=== PATIENT | female | born 1965 | race Caucasian/White ===

== ENCOUNTER 2020-03-30 09:22 | Outpatient (CLI) | payer OTHER, SELFPAY ==
--- NOTE | ~2020-03-30 | US_ITS ---
EXAMINATION: US right upper quadrant DATE: 03/30/2020 09:45 INDICATION: Right upper quadrant abdominal pain. TECHNIQUE: Multiple grayscale and Doppler ultrasound images of the abdomen were obtained. COMPARISON: CT abdomen and pelvis 11/25/2018 FINDINGS: The visualized portions of the head, body, and tail of the pancreas are normal. There is di ffuse hepatic steatosis. There is normal flow in main portal vein. The gallbladder is normal in size. No gallstones or gallbladder wall thickening. There was no sonographic Newton sign. The common duct is normal and measures 3 mm. IMPRESSION: 1. Diffuse hepatic steatosis. Reviewed, dictated and finalized at location B. ING CLEANER
== END 2020-03-30 09:23 | disposition home or self-care (01) ==
LOC: ANHIMG 09:26
PROVIDERS: PCP Internal Medicine; Visit Provider Nurse Practitioner
DX: R10.11 Right upper quadrant pain (principal); K76.0 Fatty (change of) liver, not elsewhere classified
CPT/HCPCS: 76705

== ENCOUNTER 2020-04-02 09:23 | Outpatient (CLI) | payer OTHER, SELFPAY ==
--- NOTE | ~2020-04-02 | NM_ITS ---
EXAMINATION: NM hepatobiliary w pharm DATE: 04/02/2020 11:32 INDICATION: Right upper quadrant abdominal pain. COMPARISON: CT abdomen and pelvis 11/25/2018, ultrasound 03/30/2020 TECHNIQUE: 5.1 mCi Tc-99m mebrofenin (Choletec) was administered intravenously. Scintigraphic images of the abdomen were obtained for one hour. Then, 1.5 mcg sincalide (Kinevac) IV was administered, an d imaging was continued for 30 minutes. FINDINGS: There is normal clearance of radiotracer from the blood pool. There is homogeneous tracer u ptake by the liver. Activity progresses to the bowel and gallbladder. Gallbladder ejection fraction (GBEF) was 88%. Note that most patients with gallbladder dysfunction have GBEF < 35%, which overlaps with the broad normal range of 10-90%. IMPRESSION: 1. Normal hepatobiliary scintigraphy. Reviewed, dictated and finalized at location B. CAL ASSISTANT DERMATOLOGY
== END 2020-04-02 09:24 | disposition home or self-care (01) ==
LOC: ANHIMG 09:24
PROVIDERS: PCP Internal Medicine; Visit Provider Internal Medicine
DX: R10.11 Right upper quadrant pain (principal)
CPT/HCPCS: 78227; A9537; J2805

== ENCOUNTER 2020-10-16 09:32 | Outpatient (CLI) | payer OTHER, SELFPAY ==
--- NOTE | ~2020-10-16 | MM_ITS ---
EXAMINATION: MM screening [facility] BI w [facility] HISTORY: Screening TECHNIQUE: Craniocaudal and mediolateral oblique 3-D tomosynthesis images were obtained and synthetic 2-D images were generated. CAD analysis was submitted and interpreted. COMPARISON: Comparison to multiple prior studies sequentially, with oldest reviewed study dated 09/30. BREAST PARENCHYMAL COMPOSITION: There are scattered areas of fibroglandular density. FINDINGS: There are asymmetries on CC views in the subareolar location of the right breast and outer aspect of the left breast, middle third. There are scattered benign calcifications. Stable axillary l ymph nodes. IMPRESSION: 1. New bilateral breast asymmetries on CC view. 2. Additional mammographic views and possible breast ultrasound are recommended. BI-RADS Category 0: Incomplete: Needs additional imaging evaluation. Reviewed, dictated and finalized at location A. IMPRESSION: 1. New bilateral breast asymmetries on CC view. 2. Additional mammographic views and possible breast ultrasound are recommended . BI-RADS Category 0: Incomplete: Needs additional imaging evaluation.
== END 2020-10-16 09:33 | disposition home or self-care (01) ==
LOC: ANHIMG 09:35
PROVIDERS: PCP Internal Medicine; Visit Provider Internal Medicine
DX: Z12.31 Encounter for screening mammogram for malignant neoplasm of breast (principal); R92.8 Other abnormal and inconclusive findings on diagnostic imaging of breast
CPT/HCPCS: 77063; 77067

== ENCOUNTER 2020-11-12 11:32 | Outpatient (CLI) | payer OTHER, SELFPAY ==
--- NOTE | ~2020-11-12 | MMUS_ITS ---
EXAMINATION: MM diagnostic mammo BI, US breast BI complete HISTORY: Follow-up bilateral breast masses TECHNIQUE: Additional 3-D tomosynthesis images of the breasts were performed and synthetic 2-D images were generated. CAD analysis was submitted and interpreted. High resolution bilateral complete breas t ultrasound was performed. COMPARISON: Comparison to multiple prior studies sequentially, with oldest reviewed study dated 07/14. BREAST PARENCHYMAL COMPOSITION: The breasts are heterogenously dense, which may obscure small masses. FINDINGS: MAMMOGRAPHIC FINDINGS: There is no mammographic evidence for malignancy in the left breast. There is a left breast subareola r mass which is stable. There is a focal 6 mm mass in the subareolar location of the right breast on CC view. ULTRASOUND: Right breast ultrasound: At 4:00 near the nipple there is a 4 mm cyst. At 9:00, 3 cm from the nipple there is a slightly irregular shaped hypoechoic mass with antiparallel configuration measuring 5 x 4 x 3 mm. No significant posterior features. Left breast ultrasound: Normal heterogeneous echotexture without focal solid or cystic mass. IMPRESSION: 1. Slightly irregular shaped 5 mm hypoechoic mass of the right breast at 9:00, 3 cm from the nipple w ith antiparallel configuration. 2. Ultrasound-guided right breast biopsy recommended. BI-RADS category 4, suspicious findings. Reviewed, dictated and finalized at location A. IMPRESSION: 1. Slightly irregular shaped 5 mm hypoechoic mass of the right breast at 9:00, 3 cm from the nipple with antiparallel configuration. 2. Ultrasound-guided right breast biopsy recommended. BI-RADS category 4, suspicious findings.
== END 2020-11-12 11:33 | disposition home or self-care (01) ==
LOC: ANHIMG 11:33
PROVIDERS: PCP Internal Medicine; Visit Provider Nurse Practitioner
DX: R92.8 Other abnormal and inconclusive findings on diagnostic imaging of breast (principal)
CPT/HCPCS: 76641; 77066

== ENCOUNTER 2020-11-12 13:50 | Outpatient (CLI) | payer OTHER, SELFPAY ==
--- NOTE | ~2020-11-12 | MR_ITS ---
EXAMINATION: MR cervical spine wo con EXAM DATE: 11/12/2020 14:28 INDICATION: Cervical radiculopathy. TECHNIQUE: Multi-sequential, multiplanar MR images of the cervical spine were obtained without contra st. Axial T2, axial T2 MERGE sequence. Sagittal T1, T2, T2 fat saturation images also obtained. Com parison is made to prior examination from 11/23/2016. FINDINGS: There is moderate loss of the C5-6 and 6-7 disc height. The vertebral bodies are aligned i n the AP dimension. There is small hemangioma within C7. Paraspinal soft tissue is unremarkable. The spinal cord signal intensity and intrinsic morphology is normal. Cervicomedullary junction is normal in appearance. Level by level evaluation: C2-C3: There is a minimal diffuse disc bulge. Uncovertebral joint arthropathy: Mild bilateral. Facet joint arthropathy: Mild bilateral. Neural foraminal stenosis: No stenosis. Central canal stenosis: No stenosis. C3-C4: There is a minimal diffuse disc bulge. Uncovertebral joint arthropathy: Mild to moderate right, mild left. Facet joint arthropathy: Mild bilateral. Neural foraminal stenosis: Mild right. Central canal stenosis: No stenosis. C4-C5: There is a mild diffuse disc bulge asymmetric to the right. Uncovertebral joint arthropathy: Mild to moderate right, mild left. Facet joint arthropathy: Mild bilateral. Neural foraminal stenosis: Mild right. Central canal stenosis: Mild. C5-C6: There is a mild diffuse disc bulge. Uncovertebral joint arthropathy: Moderate to severe right, moderate left. Facet joint arthropathy: Mild. Neural foraminal stenosis: Moderate right, mild to moderate left. Central canal stenosis: Mild. C6-C7: There is a mild diffuse disc bulge. Uncovertebral joint arthropathy: Moderate bilateral. Facet joint arthropathy: Mild bilateral. Neural foraminal stenosis: Moderate left, mild to moderate right. Central canal stenosis: Mild to moderate . Central canal measures 6 mm in mid sagittal AP diameter . C7-T1: Disc does not extend beyond the endplate margin. Uncovertebral joint arthropathy: Mild bilateral. Facet joint arthropathy: Mild bilateral. Neural foraminal stenosis: Mild bilateral. Central canal stenosis: No stenosis. There is been mild progression in lower cervical predominant spondylosis compared to 2017. IMPRESSION: 1. C5-6 and 6-7 moderate spondylosis. Reviewed, dictated and finalized at location G.
== END 2020-11-12 13:51 | disposition home or self-care (01) ==
PROVIDERS: PCP Internal Medicine
DX: M54.12 Radiculopathy, cervical region (principal); M47.812 Spondylosis without myelopathy or radiculopathy, cervical region
CPT/HCPCS: 72141

== ENCOUNTER 2021-01-13 12:39 | Outpatient (RCR) | payer OTHER, SELFPAY ==
[2021-01-13 12:49] VITALS: BMI 27.1
[2021-01-13 12:53] VITALS: BMI 27.1
== END 2021-04-04 10:25 | disposition home or self-care (01) ==
LOC: ANHDMC 12:39
PROVIDERS: PCP Internal Medicine; Visit Provider Nurse Practitioner
DX: E78.5 Hyperlipidemia, unspecified (principal); Z71.3 Dietary counseling and surveillance
CPT/HCPCS: 97802

== ENCOUNTER 2022-03-08 16:23 | Outpatient (CLI) | payer OTHER, SELFPAY ==
--- NOTE | ~2022-03-08 | XR_ITS ---
XR chest 2V DATE: 03/08/2022 16:48 INDICATION: Shortness of breath TECHNIQUE: PA and lateral views COMPARISON: None FINDINGS: Normal heart size. No hilar or mediastinal enlargement. No pulmonary infiltrate or consolid ation, pleural effusion or pulmonary vascular congestion or pneumothorax. Degenerative spurring of the thoracic spine. IMPRESSION: No active cardiopulmonary disease Reviewed, dictated and finalized at location A. CITING FREIGHT AGENT
== END 2022-03-08 16:24 | disposition home or self-care (01) ==
PROVIDERS: PCP Internal Medicine; Visit Provider Nurse Practitioner
DX: R06.02 Shortness of breath (principal)
CPT/HCPCS: 71046

== ENCOUNTER → 2023-02-23 09:14 | Outpatient (CLI) | payer OTHER, SELFPAY ==
--- NOTE | ~2023-02-23 | DEXA_ITS ---
Bone Density Report Name: KONRAD PAGE Age: 58 Sex: Female Ethnicity: White Date of : 1965 Indication: postmenopausal; screening for osteoporosis; hysterectomy; Referring Provider: Aurelia Miller Study: Bone densitometry was performed. Exam Date: February 23, 2023 Accession number: [id number] Bone Density: Region BMD T-score Z-score Classification AP Spine (L1-L4) 0.869 -1.6 -0.3 Osteopenia Femoral Neck (Left) 0.720 -1.2 0.1 Osteopenia Total Hip (Left) 0.903 -0.3 0.6 Normal Femoral Neck (Right) 0.704 -1.3 -0.1 Osteopenia Total Hip (Right) 0.911 -0.3 0.6 Normal Total Hip Mean 0.907 -0.3 0.6 Normal World Health Organization criteria for BMD impression classify patients as: Normal (T-score at or above -1.0), Osteopenia (T-score between -1.0 and -2.5), or Osteoporosis (T-score at or below -2.5). 10-year Fracture Risk(1): Major Osteoporotic Fracture 7.4% Hip Fracture 0.5% Reported Risk Factors: [place] (), Neck BMD=0.704, BMI=25.6 (1) FRAX(R) Version 3.08. Fracture probability calculated for an untreated patient. Fracture probability may be lower if the patient has received treatment. Clinical Information Provided by Patient: Has the following medical conditions: Hysterectomy Patient maximum height was 63.4 Menopause Age: 35 Onset of menses at age 12 Number of children 1 Missed period for more than 6 months in a row Impression: The patient has low bone mass, based on the Total Spine T-score. The patient has an estimated ten-year risk of hip fracture of 0.5% and an estimated ten-year risk of major fracture of 7.4%, based on the WHO FRAX algorithm. Discussion: BONE DENSITY IS LOW AT ONE OR MORE SKELETAL SITES. This patient's lowest T-score is low at one or more skeletal sites. It meets the World Health Organization's (WHO) criteria for ?low bone mass? (T-score between -1.0 and -2.5). The patient's 10-year risk of fracture as calculated by FRAX is less than the threshold where pharmacological therapy is recommended by the National Osteoporosis Foundation (NOF). However, all treatment decisions require clinical judgment and consideration of individual patient factors, including patient preferences, comorbidities, previous drug use, risk factors not captured in the FRAX model (e.g., frailty, falls, vitamin D deficiency, increased bone turnover, interval significant decline in bone density) and possible under or overestimation of fracture risk by FRAX. The patient should follow a healthful lifestyle (good nutrition with adequate calcium and vitamin D, and appropriate weight-bearing exercise). Follow-Up: Consider repeating this study in 2 to 3 years to reassess this patient's status, or sooner if there is some new clinical indication. Reported by: [facility] on 02/23/2023 9:25:00 AM.
== END ==
PROVIDERS: PCP Obstetrics & Gynecology; Visit Provider Obstetrics & Gynecology
DX: Z78.0 Asymptomatic menopausal state (principal); M85.89 Other specified disorders of bone density and structure, multiple sites
CPT/HCPCS: 77080

== ENCOUNTER 2024-01-31 15:29 | Outpatient (CLI) | payer OTHER, SELFPAY ==
--- NOTE | ~2024-01-31 | MM_ITS ---
EXAMINATION: MM screening [facility] BI w [facility] HISTORY: Screening TECHNIQUE: Craniocaudal and mediolateral oblique 3-D tomosynthesis images were obtained and synthetic 2-D images were generated. CAD analysis was submitted and interpreted. COMPARISON: 08/11/2022 and dating back to 04/22/2009 BREAST PARENCHYMAL COMPOSITION: The breasts are heterogeneously dense, which may obscure small masses . FINDINGS: Punctate calcifications are detected bilaterally, stable and benign in appearance. Stable parenchymal pattern without suspicious microcalcifications, architectural distortion, discrete masses or significant asymmetry. IMPRESSION: 1. No mammographic evidence of malignancy. 2. Recommend routine screening mammography in one year. BI-RADS Category 2: Benign finding(s). Reviewed, dictated and finalized at location A.
== END 2024-01-31 15:30 | disposition home or self-care (01) ==
PROVIDERS: PCP Internal Medicine; Visit Provider Internal Medicine
DX: Z12.31 Encounter for screening mammogram for malignant neoplasm of breast (principal)
CPT/HCPCS: 77063; 77067

== ENCOUNTER 2024-05-13 07:20 | Emergency (ER) | payer OTHER, SELFPAY ==
--- NOTE | ~2024-05-13 | CT_ITS ---
EXAMINATION: CT abdomen pelvis w con DATE: 05/13/2024 09:01 INDICATION: Flank pain. Left lower quadrant abdominal pain. TECHNIQUE: Computed tomography (CT) of the abdomen and pelvis was performed with 100 mL Omnipaque 350 intravenous contrast. Automated exposure control and iterative reconstruction technique were employe d. The dose-length product was 423.94 mGy-cm. COMPARISON: CT abdomen and pelvis 11/25/2018 FINDINGS: The visualized portions of the lung bases demonstrate mild atelectasis. No pleural effusion . The heart size is normal. No pericardial effusion. There is diffuse hepatic steatosis. The gallblad smita, spleen, pancreas, and adrenal glands are normal. There is a 5 mm cyst in right kidney. There is a delayed left-sided contrast nephrogram. There is a 2 mm stone in left kidney. There is mild left hy dronephrosis and hydroureter. There is a 3 mm stone at left ureterovesicular junction. There is diver ticulosis of the colon without evidence of diverticulitis. There are no dilated loops of bowel. The a ppendix is not visualized. There are no pathologically enlarged lymph nodes. There is no free intrape ritoneal fluid. There is mild thoracic and lumbar spondylosis. IMPRESSION: 1. 3 mm stone at left ureterovesicular junction with mild left hydronephrosis and hydroureter. 2. 2 mm nonobstructing left kidney stone. Reviewed, dictated and finalized at location B. RVISOR OF GUIDANCE AND TESTING IMPRESSION: 1. 3 mm stone at left ureterovesicular junction with mild left hydronephrosis a nd hydroureter. 2. 2 mm nonobstructing left kidney stone.
[2024-05-13 07:26] VITALS: BP 160/86; PULSE 79; RESP 20; TEMP 36.9; O2SAT 100
[2024-05-13] MEDS: ONDANSETRON INJ 4 MG/2 ML VIAL IV PUSH ×2 (07:31→10:19)
[2024-05-13] MEDS: HYDROmorphone HCL INJ (*CRX) 1 MG/ML SYR IV PUSH (07:32)
[2024-05-13 07:37] LABS: Basophils Absolute Auto 0.1 K/mm3 (0.0-0.1); Basophils Percent Auto 0.9 % (0.2-1.2); Eosinophils Absolute Auto 0.1 K/mm3 (0-0.3); Eosinophils Percent Auto 1.6 % (0-4.4); Hematocrit 42.3 % (37.0-47.0); Hemoglobin 14.6 g/dL (12.0-15.0); Immature Granulocyte Absolute 0.04 K/mm3 (0.00-0.031); Immature Granulocyte Percent A 0.5 % (0-0.5); Lymphocytes Absolute Auto 2.81 K/mm3 (0.9-3.2); Mean Corpuscular HGB Conc 34.5 g/dl (32-36); Mean Corpuscular Hemoglobin 31.2 pg (26-34); Mean Corpuscular Volume 90.4 fl (80-100); Mean Platelet Volume 10.2 fl (7.4-10.4); Monocytes Absolute Auto 0.8 K/mm3 (0.1-0.6); Monocytes Percent Auto 9.5 % (2.6-8.5); Neutrophils Absolute Auto 4.9 K/mm3 (1.3-6.7); Neutrophils Percent Auto 55.5 % (45.5-73.1); Platelet Count Result 233 k/mm3 (150-375); Red Blood Count 4.68 M/mm3 (4.2-5.4); Red Cell Distribution Width 12.5 % (11.5-14.5); White Blood Count 8.8 K/mm3 (4.5-10.0)
--- NOTE | 2024-05-13 07:40 | ED_ITS ---
HPI - General Adult General Chief complaint: Urogenital-Female Stated complaint: I think I have a kidney stone Time Seen by Provider: 05/13/24 07:23 History of Present Illness HPI narrative: 59-year-old female presenting to the emergency department for evaluation for acute onset of left flank left lower quadrant pain. Patient states she was feeling fine yesterday, she did develop some diarrhea during the night but had acute onset the pain and approximately 6:00 a.m. this morning with associated nausea and vomiting. Patient does report a prior history of kidney stones approximately 15 years ago which he did pass on her own. Patient is currently on Ozempic Related Data Allergies Allergy/AdvReac Type Severity Reaction Status Date / Time Penicillins Allergy Unknown Unknown Verified 05/13/24 07:21 Sulfa (Sulfonamide Allergy Unknown Unknown Verified 05/13/24 07:21 Antibiotics) Review of Systems 2 Review of Systems: All systems reviewed & are unremarkable except as noted in HPI and below PMFSH Past Medical History Medical History (Updated 05/13/24 @ 10:22 by Dylon Shaffer MD) COVID SOB (shortness of breath) Hepatic steatosis Abnormal mammogram Overweight (BMI 25.0-29.9) Sleep apnea Major depression B12 deficiency Vitamin D deficiency Surgical History Surgical History Delivery by section History of hysterectomy Family History Family History Sibling Patient's brother is in good health Breast cancer Father Cerebrovascular accident Myocardial infarction Prediabetes Mother Myocardial infarction Social History Social History Smoking status: Former smoker Smoking end date: 04/23/05 Alcohol intake: current Drinks per week: 3 Lack of Transportation: No Lack of Food: Never True Current Housing: I Have Housing Concerned About Future Housing: No Difficulty Paying Gas/Electric Bills: No Difficulty Paying for Meds: No Currently Unemployed: No Education: Master's Degree or Higher Difficulty w/ Childcare or Family Care: No Spiritual care concerns: No Exam 2 Narrative: APPEARANCE: Uncomfortable appearing HEAD: normocephalic, atraumatic. EYES: PERRLA/EOMI, conjunctivae clear. NOSE: Normal no drainage EARS:TMS clear with good light reflex. THROAT: Pharynx clear, no exudate. NECK: Supple. No adenopathy, no masses. RESPIRATORY: Airway patent, respirations nonlabored. Clear to auscultation bilaterally, no rales, rhonchi, wheezing. CARDIOVASCULAR: Regular rate and rhythm without murmurs rubs or gallops. ABDOMINAL: Left flank and left lower quadrant tenderness to palpation MUSCULOSKELETAL: Moves all extremities. Strength/ROM intact, No edema, No calf tenderness. NEURO: Alert. Cranial nerves II through XII intact. Good gait. Good coordination SKIN: Warm, dry. Normal Color Course Vital Signs Vital signs: Vital Signs Temperature 98.4 F 05/13/24 07:26 Pulse Rate 79 05/13/24 07:26 Respiratory Rate 20 05/13/24 07:26 Blood Pressure 160/86 H 05/13/24 07:26 Pulse Oximetry 100 05/13/24 07:26 Oxygen Delivery Room Air 05/13/24 07:26 Temperature 98.4 F 05/13/24 07:26 Pulse Rate 91 05/13/24 10:41 Respiratory Rate 18 05/13/24 10:41 Blood Pressure 157/89 H 05/13/24 10:41 Pulse Oximetry 99 05/13/24 10:41 Oxygen Delivery Room Air 05/13/24 07:26 Medical Decision Making MDM Narrative Medical decision making narrative: 59-year-old female presented to the emergency department for evaluation for left-sided flank pain. Patient is suspected she was having a kidney stone due to her prior history of ureteral calculi. Patient is afebrile with no leukocytosis and hemoglobin of 14.6. Patient has normal kidney function, patient had no evidence infection or hematuria on her urinary analysis. CT scan did show a 3 mm left-sided ureteral calculi. On re-evaluation patient does feel improved. Patient was updated results of her workup. Patient was comfortable with the plan to attend pain management as outpatient. Patient will be provided Flomax, Zofran and [place]. Patient was advised strain your urine having close follow-up with Urology. Differential Diagnosis Differential Diagnosis: Ureteral calculi, urinary tract infection, colitis, diverticulitis, gastroenteritis Vital Signs Vital Signs: Vital Signs Temperature 98.4 F 05/13/24 07:26 Pulse Rate 79 05/13/24 07:26 Respiratory Rate 20 05/13/24 07:26 Blood Pressure 160/86 H 05/13/24 07:26 Pulse Oximetry 100 05/13/24 07:26 Oxygen Delivery Room Air 05/13/24 07:26 Temperature 98.4 F 05/13/24 07:26 Pulse Rate 91 05/13/24 10:41 Respiratory Rate 18 05/13/24 10:41 Blood Pressure 157/89 H 05/13/24 10:41 Pulse Oximetry 99 05/13/24 10:41 Oxygen Delivery Room Air 05/13/24 07:26 Lab Data Lab results reviewed: Yes I reviewed the patient's lab results. 05/13/24 07:33 05/13/24 07:33 Labs: Lab Results 05/13/24 05/13/24 Range/Units 07:33 07:48 WBC 8.8 (4.5-10.0) K/mm3 RBC 4.68 (4.2-5.4) M/mm3 Hgb 14.6 (12.0-15.0) g/dL Hct 42.3 (37.0-47.0) % MCV 90.4 (80-100) fl MCH 31.2 (26-34) pg MCHC 34.5 (32-36) g/dl RDW 12.5 (11.5-14.5) % Plt Count 233 (150-375) k/mm3 MPV 10.2 (7.4-10.4) fl Immature Gran % (Auto) 0.5 (0-0.5) % Neut % (Auto) 55.5 (45.5-73.1) % Lymph % (Auto) 32.0 (18.3-44.2) % [place] % (Auto) 9.5 H (2.6-8.5) % Eos % (Auto) 1.6 (0-4.4) % Baso % (Auto) 0.9 (0.2-1.2) % Lymph # (Auto) 2.81 (0.9-3.2) K/mm3 [place] # (Auto) 0.8 H (0.1-0.6) K/mm3 Eos # (Auto) 0.1 (0-0.3) K/mm3 Baso # (Auto) 0.1 (0.0-0.1) K/mm3 Abs Immat Gran (auto) 0.04 H (0.00-0.031) K/mm3 Absolute Neuts (auto) 4.9 (1.3-6.7) K/mm3 Absolute Nucleated RBC 0.000 (0.0-0.012) K/mm3 Nucleated RBC % 0.0 (0.0-0.2) % Sodium 140 (137-145) mmol/L Potassium 4.6 (3.4-5.0) mmol/L Chloride 106 (98-107) mmol/L Carbon Dioxide 21 L (22-30) mmol/L Anion Gap 13 H (4-12) mmol/L BUN 17 (7-17) mg/dL Creatinine 0.60 L (0.7-1.0) mg/dL Estim Creat Clear Calc 79 ml/min Estimated GFR > 60 (59 - ) Glucose 150 H (65-110) mg/dL Calcium 9.4 (8.4-10.2) mg/dL Total Bilirubin 0.6 (0.2-1.3) mg/dL AST 33 (14-36) U/L ALT 34 (6-35) U/L Alkaline Phosphatase 82 (38-126) U/L Total Protein 7.0 (6.3-8.2) g/dL Albumin 4.5 (3.5-5.1) g/dL Urine Color Yellow (Yellow) Urine Appearance Clear (Clear) Urine pH 8.5 (5.0-9.0) Ur Specific [place] 1.019 (1.001-1.035) Urine Protein Negative (Negative) mg/dL Urine Glucose (UA) Negative (Negative) mg/dL Urine Ketones Negative (Negative) mg/dL Ur Blood (Man) Negative (Negative) Urine Nitrate Negative (Negative) Urine Bilirubin Negative (Negative) Urine Urobilinogen 0.2 (<2.0) mg/dL Leukocyte Esterase Rfl Negative (Negative) MAEGAN/UL Imaging Data Radiologist's impression: Impressions Abdomen/Pelvis CT 05/13/24 09:02 IMPRESSION: 1. 3 mm stone at left ureterovesicular junction with mild left hydronephrosis and hydroureter. 2. 2 mm nonobstructing left kidney stone. Discharge Plan Discharge Clinical Impression: Calculi, ureter Patient Disposition: Home, Self-Care Condition: Stable Instructions: Antibiotic Form, Kidney Stones (ED), How to Strain Your Urine (ED), Flank Pain (ED), Ureteral Stones (ED) Additional Instructions: Ibuprofen for pain control. [place] as needed for additional pain control. Flomax to help you pass the stone. Zofran as needed for nausea control. Strain your urine as instructed. Have close follow-up with Urology. If you have any worsening symptoms including uncontrolled pain, uncontrolled nausea and vomiting or high fever please call or return to the emergency department. Patient Language: Amharic Prescriptions: New hydrocodone-acetaminophen 5-325 mg tablet 1 tablet PO Q12H PRN (Reason: pain) Qty: 14 0RF tamsulosin [Flomax] 0.4 mg capsule 0.4 mg PO DAILY 14 Days Qty: 14 0RF ondansetron 4 mg tablet,disintegrating 4 mg PO Q8H PRN (Reason: nausea and vomiting) Qty: 14 0RF No Action diazepam 2 mg tablet 2 mg PO QHS PRN (Reason: anxiety) Qty: 20 0RF cholecalciferol (vitamin D3) 50 mcg (2,000 unit) capsule 50 mcg PO DAILY Qty: 1 0RF dicyclomine 10 mg capsule 10 mg PO TID PRN (Reason: abdominal pain) Qty: 270 0RF Rx Instructions: DUE FOR APPOINTMENT IN NOVEMBER cyanocobalamin (vitamin B-12) 1,000 mcg/mL kit 1,000 mcg subcut WEEKLY Qty: 4 6RF fluticasone propionate [Flonase Allergy Relief] 50 mcg/actuation spray,suspension 1 spray intranasal Q12H Qty: 16 5RF Rx Instructions: administer into each nostril Follow-up/Referrals: Jason Winkler MD [Physician] - Yon Palomino DO [Primary Care Provider] - Stand Alone Forms: Work/School Release IP
[2024-05-13 07:49] LABS: Alanine Aminotransferase 34 U/L (6-35); Albumin Level 4.5 g/dL (3.5-5.1); Alkaline Phosphatase 82 U/L (38-126); Anion Gap 13 mmol/L (4-12); Aspartate Amino Transferase 33 U/L (14-36); Bilirubin,Total 0.6 mg/dL (0.2-1.3); Blood Urea Nitrogen 17 mg/dL (7-17); Calcium 9.4 mg/dL (8.4-10.2); Carbon Dioxide 21 mmol/L (22-30); Chloride 106 mmol/L (98-107); Estimated CRCL calculation 79 ml/min; Estimated Glomerular Filt Rate > 60; Glucose 150 mg/dL (65-110); Potassium 4.6 mmol/L (3.4-5.0); Sodium 140 mmol/L (137-145)
[2024-05-13 08:18] LABS: Add Urine Microscopic? NO; Appearance Urine Clear (Clear); Bilirubin Urine Negative (Negative); Blood Urine Negative (Negative); Color Urine Yellow (Yellow); Glucose Urine UA Negative (Negative); Ketones Urine Negative (Negative); Leukocyte Esterase Ur Negative LEU/UL (Negative); Nitrate Urine Negative (Negative); Protein Urine Negative (Negative); Specific Grav Ur 1.019 (1.001-1.035); Urobilinogen Urine 0.2 mg/dL (<2.0); pH Urine 8.5 (5.0-9.0)
[2024-05-13 08:36] VITALS: BP 157/87; PULSE 79; RESP 18; O2SAT 99
[2024-05-13] MEDS: KETOROLAC 30 MG/ML VIAL (*BKC) IV PUSH (09:58)
[2024-05-13] MEDS: HYDROcodone/acetaminophen (*CRX) 5-325 MG TABLET 1 TAB PO (09:59)
[2024-05-13] MEDS: TAMSULOSIN HCL 0.4 MG CAPSULE PO (09:59)
[2024-05-13 10:00] VITALS: BP 157/89; PULSE 74; RESP 16; O2SAT 100
[2024-05-13 10:41] VITALS: BP 157/89; PULSE 91; RESP 18; O2SAT 99
--- OUTSIDE RECORDS SUMMARY | 2024-05-15 15:33 | XMS_ITS | Referral Summary ---
Author Organization [facility] Medical Office Building [address] Address [address] [place] [address] Care Team Providers Care Tool Dresser Name Role Phone Yon Palomino DO Primary Care Provider [phone] Allergies Active Allergy Reactions Criticality Noted Date Comments Penicillins Rash Medium 11/28/2018 Sulfa (Sulfonamide Antibiotics) Shortness of breath High 12/02/[address] (CYMBALTA) 60 mg capsule Take 60 mg by mouth daily Active ALPRAZolam (XANAX) 0.25 mg tablet alprazolam 0.25 mg tablet Active dicyclomine (BENTYL) 10 mg capsule TAKE 1 CAPSULE BY MOUTH THREE TIMES A DAY NEEDED FOR ABDOMINAL PAIN. 10/23/19 21 Active estradioL (VAGIFEM) 10 mcg tablet Imvexxy Maintenance Pack 10 mcg vaginal insert 08/05/19 20 Active metroNIDAZOLE (FLAGYL) 500 mg tablet metronidazole 500 mg tablet Active nystatin-triamc inolone ointment nystatin-triamcino lone 100,000 unit/gram-0.1 % topical ointment Active cyanocobalamin (Vitamin B-12) 1,000 mcg/mL injection INJECT 1 ML SUBCUTANEOUSLY ONCE WEEKLY 11/06/19 24 Active fluticasone propionate (FLONASE) 50 mcg/actuation nasal spray SPRAY ONE SPRAY INTO EACH NOSTRIL EVERY 12 HOURS 11/08/19 24 Active Ozempic 1 mg/dose (4 mg/3 mL) pen injector injection INJECT 1MG SUBCUTANEOUSLY ONCE WEEKLY Active triamcinolone (KENALOG) 0.1 % ointmentIndicat ions:Contact dermatitis due to plants, except food, unspecified contact dermatitis type Apply topically 2 (two) times a day for 10 days Right arm 30 g 12/02/19 24 Active Active Problems Problem Noted Date Diagnosed Date Anxiety 08/11/2022 History of hysterectomy 08/11/2022 Osteopenia 08/11/2022 Premature menopause 08/11/2022 Type 2 diabetes mellitus 08/11/2022 Mammogram abnormal 12/06/2020 Right lower quadrant pain 12/11/2018 Assessment & Plan (02/04/2019 3:26 PM CDT): I reviewed all notes.labs,images and procedures. She had colonoscopy and BE at [facility] several months ago. Currently ibs with migratory abd pains and erratic bms. Also very concerned aboput etoh consumption. I discussed with her the CT,blood work and PE findings without evidence liver dmage and discussed reduction in etoh use. For the ibs discussed hi fiber diet. PE wnl and return prn. Assessment & Plan (12/11/2018 1:54 PM CDT): Patient has had some improvement, minimally, since Sunday. Denies fevers, chills. Negative for rebound tenderness, rovsing, obturator, etc appendix exams. Patient last cbc normal. Patient with history of endometriosis. No outward sign of endometrial deposit. Request patient for cd of [facility] from [facility]. If fever, nausea, vomiting occur please call or go to ER. 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 Social History Tobacco Use Types Packs/Day Years Used Date Smoking Tobacco: Former Cigarettes Smokeless Tobacco: Never Tobacco Cessation:Counseling Given: Not Answered Alcohol Use Standard Drinks/Week Comments Yes 0 (1 standard drink = 0.6 oz pure alcohol) thinks she might be an alcholoic AUDIT-C Answer Date Recorded Frequency of Alcohol Consumption 2-3 times a wee k 11/28/2018 Average Number of Drinks 3 or 4 019 Frequency of Binge Drinking Never 11/2018 PHQ-2 Answer Date Recorded PHQ-2 Score 0 02/04/2019 Personal Safety Answer Date Recorded Getting School Help Needed Not on file 03/16 /2024 Comments Unknown Sex and Gender Information Value Date Recorded Sex Assigned at Not on file Legal Sex Female 6:56 AM [employer] TRA[employer] Gender Identity Female 11/29/2020 8:21 AM CDT Sexual Orientation Straight 11/29/2020 8: 21 AM CDT Last Filed Vital Signs Vital Sign Reading Time Taken Comments Blood Pressure 133/87 12/02/2023 4:07 PM CDT Pulse 78 12/02/2023 4:07 PM CDT Temperature 36.6 ??C (97.8 ??F) 12/02/2023 4:07 PM CD T Respiratory Rate 16 12/02/2023 4:07 PM CDT Oxygen Saturation 97% 12/02/2023 4:07 PM CDT Inhaled Oxygen Concentration - - Weight 70.3 kg (155 lb) 12/02/2023 4:07 PM CDT Height 162.6 cm (5' 4 ) 12/02/2023 4:07 PM CDT Body Mass Index 26.61 12/02/2023 4:07 PM CDT Plan of Treatment Not on file Procedures Procedure Name Priority Date/Time Associated Diagnosis Comments SCREENING MAMMOGRAM BILATERAL W ALLAN Schedule Routine, Read Routine (OP Routine) 08/11/2022 3:19 PM CDT Screening mammogram, encounter for EGFR Routine 12/03/2018 3:27 PM CDT Right lower quadrant abdominal pain from Last 3 Months or Most Recently Relevant to Health Maintenance Results * Screening Mammogram Bilateral W Allan (08/11/2022 3:19 PM CDT) Anatomical Region Laterality Modality Breast Bilateral Mammography Narrative 08/15/2022 3:32 PM CDT Mammogram Technique: Bilateral Digital Breast Tomosynthesis, Bilateral C-view 2D Screening mammogram. ??Views obtained: ??bilateral craniocaudal and bilateral mediolateral oblique. ??Computer Aided Detection was performed. Mammogram Findings: The present examination has been compared to prior imaging studies performed at [facility] on 10/09/2006, and at [facility] on 09/13/2006. There are scattered areas of fibroglandular density. There is no suspicious abnormality in either breast. There are no significant changes from the prior study. Impression: Finding is benign. Annual screening mammography is recommended. OVERALL FINAL ASSESSMENT: BI-RADS CATEGORY 2: ??Benign. Procedure Note Dayana Gallardo MD - 08/15/2022 Mammogram Technique: Bilateral Digital Breast Tomosynthesis, Bilateral C-view 2D Screening mammogram. Views obtained: bilateral craniocaudal and bilateral mediolateral oblique. Computer Aided Detection was performed. Mammogram Findings: The present examination has been compared to prior imaging studies performed at [facility] on 10/09/2006, and at [facility] on 09/13/2006. There are scattered areas of fibroglandular density. There is no suspicious abnormality in either breast. There are no significant changes from the prior study. Impression: Finding is benign. Annual screening mammography is recommended. OVERALL FINAL ASSESSMENT: BI-RADS CATEGORY 2: Benign. us Self Screening Mammogram IMG MAMMO PROCEDURES Fi nal Result * eGFR (12/03/2018 3:27 PM CDT) eGFR 100 mL/min/1.7 3 m2 JT SIMONS (ESSENCE) Comment: Interpretive Data Reference Interval Normal ?>/= 90 mL/min/1.73m2 Mildly decreased* ? 60 - 89 mL/min/1.73m2 Mildly to moderately decreased ?45 - 59 mL/min/1.73m2 Moderately to severely decreased ??30 - 44 mL/min/1.73m2 Severely decreased ?15 - 29 mL/min/1.73m2 Kidney Failure ?< 15 ??mL/min/1.73m2 *Relative to young adult level If -Wallisian multiply value by 1.16. Estimated glomerular filtration rate is determined by the CKD-EPI equation recommended by the National Kidney Foundation (KDIGO 2012 Clinical Practice Guideline for the Evaluation and Management of Chronic Kidney Disease. Kidney Intnl Suppl Apr 2012;3:1). The CKD-EPI equation should not be used for patients with unstable renal function and has not been validated in children and those over 70. Current interpretive data was last reviewed 2015. Blood specimen (specimen) 12/03/2018 3:27 PM CDT 12/03/2018 4:15 PM CDT us Yolette Loja [employer] LAB BLOOD ORDERABLES Final Resul t [facility] ([facility]) [address] [facility] [place] [address] from Last 3 Months or Most Recently Relevant to Health Maintenance Insurance [employer] [facility] [place] [id number] [facility] [id number] [facility] [id number] Care Teams Tool Dresser Relationship Specialty Start Date End Date Yon Palomino DO PCP - General Internal Medicine 11/26/18
--- OUTSIDE RECORDS SUMMARY | 2024-05-15 15:33 | XMS_ITS | Encounter Summary ---
Author Organization [facility] Address [address] [place] [address] Care Team Providers Care Life Educator Name Role Phone Yon Palomino DO Primary Care Provider [phone]- [phone] Encounter Details Date Type Department Care Team (Late st Contact Info) Description 09/05/2018 Telephone [facility] [address] [place] [id number] [phone] Eliza Gross, SPEECH AND DRAMA TEACHER-[facility] [address] [address] Social History Tobacco Use Types Packs/Day Years Used Date Smoking Tobacco: Never Smokeless Tobacco: Never Alcohol Use Standard Drinks/Week Comments No 0 (1 standard drink = 0.6 oz pur e alcohol) Sex and Gender Information Value Date Recorded Sex Assigned at Not on file Gender Identity Not on file Sexual Orientation Not on file documented as of this encounter Plan of Treatment Not on file documented as of this encounter Visit Diagnoses Not on filedocumented in this encounter Care Teams Life Educator Relationship Specialty Start Date End Date Yon Palomino DO PCP - General 10/30/17 documented as of this encounter
--- OUTSIDE RECORDS SUMMARY | 2024-05-15 15:33 | XMS_ITS | Data Portability ---
Author Organization [facility] Address [address] [place] [address] Care Team Providers Care Copier Technician Name Role Phone JO ANN ASCENCIO Primary Care Provider Assessment Encounter Date Assessment Date Assessment LastModified by Organization Details LastModified Time 08/11/2022 08/11/2022 healthy female exam/menopaus e patient declines std testing pap- none further mammogram today colonoscopy due 2030 dexa ordered and encouraged Encouraged weight bearing exercise and 1500mg daily of Calcium with Vitamin D FU 1 year or prn Not available 08/11/2022 11:41:15 Plan of Treatment Reminders Order Date Submit Date Provider Last Modified By Organization Details Last Modified Time Details Appointments None recorded. Lab None recorded. Referral None recorded. Procedures None recorded. Surgeries None recorded. Imaging None recorded. Medication Orders nystatin-t riamcinolo ne 100,000 unit/gram- 0.1 % topical ointment 2022 023 [email or web address] [id number], [address] [place], [address], 3 10:02:38 Estrace 0.01% (0.1 mg/gram) vaginal cream 2022 023 [place] [id number], [address] [place], [address], 3 10:03:21 Estrace 0.01% (0.1 mg/gram) vaginal cream 2022 023 [place] [id number], [address] [place], [address], 10:34:20 Patient TargetsNo targets recorded. Patient InstructionsNo instructions recorded. Reason for Referral None Reported. Results Created Date Observation Date Name Description Value Unit Range Abnormal Flag Note LastModifiedBy Organization Detail LastModifiedTime 08/25/19 23 08/24/2022 CT/GC AND TRICH OMONA S VAGIN MAMIE (RRNA ), SWAB chlamydia trachomatis, PCR Negati ve negati ve Not Available [facility] (Lab) [address] [facility], [place], [address], 08/27/2022 10:36:36 08/25/19 23 08/24/2022 CT/GC AND TRICH OMONA S VAGIN MAMIE (RRNA ), SWAB neisseria gonorrhoeae, PCR Negati ve negati ve Not Available [facility] (Lab) [address] [facility], [place], [address], 08/27/2022 10:36:36 08/25/19 23 08/24/2022 CT/GC AND TRICH OMONA S VAGIN MAMIE (RRNA ), SWAB trichomonas vaginalis ribosomal RNA (rrna) Negati ve negati ve Not Available [facility] (Lab) [address] [facility], [place], [address], 08/27/2022 10:36:36 08/25/19 23 08/24/2022 CULTU RE: HERPE S SIMPL EX VIRUS (HSV) , REFLE X TYPIN G source LESION SCRAPI NGS Not Available [facility] (Lab) [address] [facility], [place], [address], 08/27/2022 10:36:37 08/25/19 23 08/24/2022 CULTU RE: HERPE S SIMPL EX VIRUS (HSV) , REFLE X TYPIN G hsv culture, body fluid NOT ISOLAT ED right labia minor a Perfo rming Organ izati on Infor matio n: Site ID: CB Name: [facility] Addre ss: [address] [place] [address] Direc tor: Delfin kwan Not Available [facility] (Lab) [address], [place], [address], 08/27/2022 10:36:37 02/24/20 23 02/23/2023 DEXA No observ ation record ed. [facility] [address], [place], [address], 06/10/2023 19:49:57 Result Notes None recorded. Problems Name Problem SNOMED Code Status Onset Date Resolution Date Notes Provider Name and Address Organization Details Recorded Time Premature menopause 424763425 Active 2022 age 35- surgic al, HRT only 1-2 years Aurelia Miller MD [address], [place], [address], [facility] 3 11:23:31 Osteopenia 604859870 Active 2022 Aurelia Miller MD [address], [place], [address], [facility] 3 11:23:39 Type 2 diabetes mellitus 15711260 Active 2022 Aurelia Miller MD [address], [place], [address], [facility] 3 11:23:45 Anxiety 00208246 Active 2022 Aurelia Miller MD [address], [place], [address], [facility] 3 11:24:11 History of hysterectomy 151963606 Active 2022 LAVH/B SO endo/o v cysts Aurelia Miller MD [address], [place], [address], [facility] 3 11:24:36 Problem Notes None recorded. Procedures Surgical History Date Name Laterality Status Provider Name and Address Organization Details Recorded Time 06/07/19 22 Date of Last Mammogram completed Lazara Brantley [facility] 08/11/2022 10:56:15 04/23/19 21 Breast Biopsy completed Peyton Rudolph [facility] 11/16/2022 15:08:22 03/24/20 20 Date of Last [facility] 08/24[facility]2022 12:46:53 03/24/20 20 completed Grace Meyer [facility] 08/24/2022 12:46:53 03/24/20 20 [facility] 11/16/2022 14:57:54 04/23/19 19 Most Recent [facility] 08/24/2022 12:46:53 04/23/19 18 Date of Last Pap Smear completed Grace Meyer [facility] 08/24/2022 12:46:53 04/18/20 17 Colonoscopy completed Peyton Rudolph [facility] 11/16/2022 15:08:07 04/23/19 09 LEEP completed Peyton Rudolph [facility] 11/16/2022 14:55:41 04/23/19 00 Total Hysterectomy completed Peyton Rudolph [facility] 11/16/2022 14:56:08 04/23/18 98 Tubal Ligation completed Peyton Rudolph [facility] 11/16/2022 14:56:03 04/23/18 93 Laparoscopy completed Peytonmoi Rudolph [facility] 11/16/2022 15:07:41 03/24/19 88 [facility]es[facility] 11/06/2022 10:03:41 Hysteroscopy completed Lazara Brantley [facility] 08/11/2022 09:34:06 Endometrial Ablation completed Grace Olsonfidel [facility] 08/24/2022 12:47:05 Endometrial Biopsy completed [facility] 08/24/2022 12:47:05 Imaging Results Imaging Date Name Status LastModified by Organizatio n Details LastModified Time 02/23/[address] [facility] [address] [address], [place], [address], 06/10/2023 19:49:57 Procedure Notes None recorded. Medical Equipment None Reported. Allergies Allergen ID Allergen Name Allergen Category Reaction Reaction Severity Criticality Documentation Date Start Date Code Code System Note Provider Name and Address Organization Details Recorded Time Product containin g penicilli n and antibioti c (product) medicatio n respirato ry distress moderate Not available 08/11/2022 07074 05 SNOMED Lazara rascon [facility] 3 11:14:11 Substance with sulfonami de structure and antibacte rial mechanism of action (substanc e) medicatio n Not available Not available Not available 08/11/2022 [address] rascon [facility] 3 11:14:19 Medications Name Sig Start Date Stop Date Status Note LastModified by Organization Details LastModified Time prednisone 10 mg tablet TAKE 1 TABLET BY MOUTH EVERY DAY 08/11 completed Not Available Not Available Not Available fluconazole 150 mg tablet TAKE 1 TABLET BY MOUTH NOW. MAY REPEAT AFTER 72 HOURS IF NEEDED 08/11 completed Not Available Not Available Not Available nystatin-tr iamcinolone 100,000 unit/gram-0 .1 % topical ointment APPLY TO AFFECTED AREA TWICE A DAY FOR 7 DAYS 11/06 completed Not Available Not Available Not Available estradiol 0.01% (0.1 mg/gram) vaginal cream INSERT 1G VAGINALLY 2-3 TIMES PER WEEK active Not Available Not Available No t Available duloxetine 60 mg capsule,del ayed release TAKE 1 CAPSULE BY MOUTH EVERY DAY 08/11 completed Not Available Not Available Not Available Ozempic 1 mg/dose (2 mg/1.5 mL) subcutaneou s pen injector 11/06 completed Not Available Not Available Not Available Ozempic 1 mg/dose (4 mg/3 mL) subcutaneou s pen injector INJECT1 MG SUBCUTANE OUSLY WEEKLY 11/06 completed Not Available Not Available Not Available BinaxNOW COVID-19 Ag Self Test kit FOLLOW INSTRUCTI ONS INCLUDED WITH THE PACKAGE. 09/06 completed Not Available Not Available Not Available Paxlovid 300 mg (150 mg x 2)-100 mg tablets in a dose pack TAKE DIRECTED FOR 5 DAYS 08/11 completed Not Available Not Available Not Available Ozempic 2 mg/dose (8 mg/3 mL) subcutaneou s pen injector INJECT 0.75ML UNDER THE SKIN ONCE WEEKLY active Not Available Not Available No t Available Vitals Date Recorded Body height Body mass index (BMI) Body weight Systolic blood pressure Diastolic blood pressure Provider Name and Address Organization Details Last Updated DateTime 08/11/2022 160.02 cm 26 kg/m2 71386.08 g 110 mm[Hg] 62 mm[Hg] [facility] 11:11:08 Date Recorded Body height Systolic blood pressure Diastolic blood pressure Provider Name and Address Organization Details Last Updated DateTime 08/24/2022 160.02 cm 117 mm[Hg] 78 mm[Hg] [facility] 08/24/2022 12:46:42 Date Recorded Body height Systolic blood pressure Diastolic blood pressure Provider Name and Address Organization Details Last Updated DateTime 09/06/2022 160.02 cm 119 mm[Hg] 78 mm[Hg] [facility] 09/06/2022 09:43:31 Date Recorded Body height Body mass index (BMI) Body weight Systolic blood pressure Diastolic blood pressure Provider Name and Address Organization Details Last Updated DateTime 11/06/2022 160.02 cm 25.9 kg/m2 52861.49 g 125 mm[Hg] 84 mm[Hg] Peyton Rudolph [facility] 10:02:29 Social History Question Answer Notes LastModified by Organizat ion Details LastModified Time Tobacco Smoking Status Former Smoker Alicia Segovia tarah, [facility] 11/06/2022 09:42:42 What Is Your Level Of Alcohol Consumption? Moderate Information not available 08/24/2022 How Many Years Have You Consumed Alcohol? 40 Information not available 08/24/2022 Are You Blind Or Do You Have Difficulty Seeing? No Information not available 08/24/2022 What Is Your Level Of Caffeine Consumption? None Information not available 08/24/2022 How Much Tobacco Do You Chew? None Information not available 08/24/2022 In The 14 Days Before Symptom Onset, Have You Had Close Contact With A Laboratory-confir med COVID-19 While That Case Was Ill? No Information not available 08/24/2022 In The 14 Days Before Symptom Onset, Have You Had Close Contact With A Person Who Is Under Investigation For COVID-19 While That Person Was Ill? No Information not available 08/24/2022 Have You Been To An Area Known To Be High Risk For COVID-19? No Information not available 08/24/2022 Are You Deaf Or Do You Have Serious Difficulty Hearing? No Information not available 08/24/2022 What Type Of Diet Are You Following? REGULAR Information not available 08/24/2022 What Is The Highest Grade Or Level Of School You Have Completed Or The Highest Degree You Have Received? 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 No Information not available 08/24/2022 Do You Use Protection During Sex? No Information not available 08/24/2022 Do You Use Your Seat Belt Or Car Seat Routinely? Yes Information not available 08/24/2022 Do You Have Smoke And Carbon Monoxide Detectors In Your Home? Yes Information not available 08/24/2022 How Much Tobacco Do You Smoke? No Information not available 08/24/2022 Do You Feel Stressed (tense, Restless, Nervous, Or Anxious, Or Unable To Sleep At Night)? [id number] Information not available 08/24/2022 Do You Use Any Illicit Or Recreational Drugs? No Information not available 08/24/2022 Do You Use Sunscreen Routinely? Yes Information not available 08/24/2022 Has Tobacco Cessation Counseling Been Provided? No [email or web address] Information not available 11/06/2022 Have You Used IV Drugs? No Information not available 08/24/2022 Do You Or Have You Ever Used Any Other Forms Of Tobacco Or Nicotine? No [email or web address] Information not available 11/06/2022 Sex: Unknown Functional Status Question Answer Note LastModified by Organizat ion Details LastModified Time Do you have difficulty walking or climbing stairs? No [email or web address] Information not available 11/06/2022 Are you able to walk? YESWOREST Information not available 08/24/2022 Are you able to care for yourself? Yes [email or web address] Information not available 11/06/2022 Do you have difficulty dressing or bathing? No [email or web address] Information not available 11/06/2022 What is your exercise level? Occasional Information not available 08/24/2022 Mental Status None recorded. Family History Relationship Description Onset Age of this Age Resolved Age Notes LastModified by Organization Details LastModified Time Father Hypertensive disorder [email or web address] Not available 2022 11:17:00 Father Heart disease [email or web address] Not available 2022 11:17:06 Medical History Condition Response Allergies (Food, seasonal, environmental ) N Other Y Breast Cancer N Drug/Latex Allergies/Reactions Y Blood Transfusion N Dermatologic Disorders N Lung Disease N Defects or Inherited Disease N Breast Problem Y Gestational Diabetes Y Hematologic disorders N Anesthesia Complications N History of STI Y Deep Vein Thrombosis N Polycystic ovary syndrome N Anxiety Disorder Y Autoimmune disease N Arthritis N Infertility Y Polyps N Acid Reflux (GERD) N History of abnormal pap Y Cancer N Stroke N Varicosities N Neurologic/Epilepsy N Endometriosis Y High Cholesterol N Headaches Y Fibromyalgia N Kidney Disease N Heart Problems N Kidney or Bladder Problems Y Thyroid Problems N GI Problems Y Eating Disorder N Anemia N Art (IVF or FET) N Psychiatric Illness N Ovarian Cancer N Diabetes Y Pulmonary (TB, Asthma) N Hepatitis/Liver Disease N No Past Medical History N Eczema N Urinary Tract Infection Y Abuse/Domestic Violence N Asthma N Trauma/Violence N Depression/ depression Y Heart Disease N Pre-Eclampsia N Hypertension N Osteoporosis Y Thrombophilias N Gynecological History Statement/Question Response Date of Last Mammogram 06/07/2021 Date of LMP 04/23/1999 N Was last menstrual period normal Y STIs/STDs Y If Post Menopausal, Age at Menopause 35 Date of control 10/01/1982 Date of Last Colonoscopy 03/24/2020 Abnormal Pap Yes HPV Vaccine N Duration of Flow (days) 4 Current Control Method Hysterectom y Age at First Child 34 Frequency of Cycle (Q days) 28 Most Recent Bone Density 04/23/2018 Sexually Active? Y Date of DEXA bone scan 04/23/1998 Age of first menstrual cycle 11 Date of Last Pap Smear 04/23/2017 Sexual Problems? Y LMP Unknown 03/24/2020 N 04/23/1989 Obstetrics History GPAL:G 2 P 1 0 1 1 Type Value Full Term 1 Spontaneous 1 Living 1 Total 2 Past Encounters Encounter ID Performer Location Encounter Start Date Encounter Closed Date Diagnosis/Indication Diagnosis SNOMED-CT Code Diagnosis ICD10 Code Diagnosis Note [id number] Aurelia Miller MD [facility] [address] [address] 08/11/2022 10:34:14 08/11/2022 11:42:21 Gynecologic examination 32667377 Z01.419 History of hysterectomy 433970915 Z90.711 Osteopenia 348371180 M85 .80 Premature menopause 3737 47520 E28.319 [id number] KENNY Ortiz [facility] [address] [address] 08/24/2022 12:38:41 08/24/2022 14:11:44 Vulval irritation 904226114 N90.89 Irritation around vaginal openingSTI testing sentHSV PCR testing sentdiscus sed vulvar care guidelines - recommende d crisco twice daily, use as lubricatio n with IC. Free and clear laundry products, no vaginal soaps/wipe s, sleep with no underwear, cotton underwear onlyrx sent, R/B/A discussedd iscussed option of vaginal estrogen - she will consider. Recommend RTC in 2-3 weeks for f/u, consider vaginal estrogen therapy. Time spent in visit is a total of 25 mins with at least 50% of visit consisting of counseling and review of plan of care. Atrophic vulva 071063395 N90.5 Venereal d isease screening 923901318 Z11.3 [id number] KENNY Ortiz [facility] [address],[place] [address] 09/06/2022 09:38:17 09/06/2022 10:11:44 Atrophic vulva 820758680 N90.5 vaginal atrophycon tinue with crisco twice daily to vulva, use this as lubricatio n with ICdiscusse d option of estrogen vaginal cream, discussed R/B/Adenie s any hx of DVT/PE or BCrx sentuse small amount 2-3 times per weekf/u in 6 weeks Time spent in visit is a total of 20 mins with at least 50% of visit consisting of counseling and review of plan of care. Dyspareunia 31437144 N94 .10 [id number] KENNY Ortiz [facility] [address],[place] [address] 11/06/2022 09:42:25 11/06/2022 10:37:01 Atrophic vulva 874127881 N90.5 significan t improvemen t in irritation noted on examreassu maverick provided to patient that consistent use over time will provide further improvemen t to her symptoms.s trict routine of crisco twice daily encouraged , use as lubricatio n with ICestrace cream 3x per week. Refills sent, R/B/A discussedf /u in 4 months, if symptoms persist after consistent use consider vulvar specialist referral Time spent in visit is a total of 20 mins with at least 50% of visit consisting of counseling and review of plan of care. Health Concerns Section Related Observation LastModified by Organization Detai ls LastModified Time None Recorded Concern Status LastModified by Organization Details LastModified Time None Recorded Advance Directives Directive None Recorded Payers Encounter Date Sequence Insurance Name Policy Number Policy Anaya Covered Member ID Anaya Member ID Guarantor Name 08/11/2022 1 [facility] [employer] [id number] Marisela Aline [id number] OI Marisela Aline 08/24/2022 1 [facility] [employer]AN [id number] Marisela Aline [id number] OI Marisela Aline 09/06/2022 1 [facility] [employer]AN [id number] Marisela Aline [id number] OI Marisela Aline 11/06/2022 1 [facility] [employer] PLAN [id number] Marisela Aline [id number] OI Marisela [place] Notes Date Note Type Note Provider Name and Address Organization Details Recorded Time 3 text/html Patient is a 57yo who presents for an annual exam. LAVH/BSO at age 35 for severe endo and bilateral large ovarian cysts. used HRT for 1-2 years, none since. uses Yana-intima (hyaluronic acid) for vaginal dryness and it is helping a lot. last pap- 2017 but before that not since hysterectomy mammo-2021, has scheduled today colonoscopy-2020, 10 years dexa-long time, osteopenia menopause-age 35 sexually active-y seatbelts-y exercise-y depression-denies domestic violence-denies tobacco-no concerns- Aurelia Miller MD [address], [place], [address], [facility] 08/11/2022 11:41:46 3 text/html 57yopresents for evaluation of vulvar irritationsymptoms started 3-4 days ago after ICnoticed irritation, burning, itching around vaginal openingthis frequently happens after ICuses coconut oil as lubricationSA with steady male partneruses OTC HUTCHINSON vaginal moisturizerneg d/cneg n/v/fneg pelvic pain KENNY Ortiz [address], [place], [address], [facility] 08/24/2022 13:47:00 3 text/html 57yopresents for evaluation of vulvar irritations/p hyst/BSO at age 35 for endometriosis/ ovarian cysthas been experiencing vaginal dryness, irritation for yearsIC is painfulhas used OTC HUTCHINSON products with some improvementused nystatin/triamcinolone ointment and this helped some KENNY Ortiz [address], [place], [address], [facility] 09/06/2022 10:11:23 3 text/html 57yopresents for f/ustart[facility] sometimeshas not noticed a significant improvement with IC, however irritation has improved s/p hyst/BSO at age 35 for endometriosis/ ovarian cysthas been experiencing vaginal dryness, irritation for yearsIC is painful KENNY Ortiz [address], [place], [address], [facility] 11/06/2022 10:36:17 OBGyn Episode Ob Episode Information Episode Created Date Number of Fetuses Patient Bloodtype Patient rh Status Prepregnancy Weight lbs Domestic Partner Domestic Partner Phone Father Name Electrician Manager Status 08/12/19 23 1 CLOSED Fetus Data First Name Last Name Admitted to NICU Weight (g) Sex Living Outcome Pediatric Complications Fetus ID Race Codes Race Delivery Type , Spontane ous [id number] Nirmal Calculation Initial Nirmal Date Initial Exam Date Initial Exam Provider Initial Ultrasound Date Last Menstrual Period Date Ultra Sound Weeks Gestation 0 Eighteen To Twenty Week Nirmal Update Ultra Sound Date Fundal Height At Umbil Quickening Date Ultra Sound Latest Weeks Gestation Final Nirmal Confirmed By Final Nirmal Confirmed Date Final Nirmal Date Ultra Sound Latest Days Gestation 0 0 Menstrual History Last Menstrual Date Menses Monthly On Bcp Conception Prior Menses Frequency Hcg Plus Date Menarche Onset Age Delivery Information Delivery Date Delivery Type Labor Anesthesia Weeks Gestation Incision Type Labor Labor Length Hrs Delivered By Post Complications Tubal Sterilization Discharge Date Comments 6 Discharge Information Feeding Method Contraceptive Method Maternal HG B and HCT Levels Ob Episode Information Episode Created Date Number of Fetuses Patient Bloodtype Patient rh Status Prepregnancy Weight lbs Domestic Partner Domestic Partner Phone Father Name Electrician Manager Status 08/12/19 23 1 CLOSED Fetus Data First Name Last Name Admitted to NICU Weight (g) Sex Living Outcome Pediatric Complications Fetus ID Race Codes Race Delivery Type 5244.43 [id number] M Full Term [id number] Primary Nirmal Calculation Initial Nirmal Date Initial Exam Date Initial Exam Provider Initial Ultrasound Date Last Menstrual Period Date Ultra Sound Weeks Gestation 0 Eighteen To Twenty Week Nirmal Update Ultra Sound Date Fundal Height At Umbil Quickening Date Ultra Sound Latest Weeks Gestation Final Nirmal Confirmed By Final Nirmal Confirmed Date Final Nirmal Date Ultra Sound Latest Days Gestation 0 0 Menstrual History Last Menstrual Date Menses Monthly On Bcp Conception Prior Menses Frequency Hcg Plus Date Menarche Onset Age Delivery Information Delivery Date Delivery Type Labor Anesthesia Weeks Gestation Incision Type Labor Labor Length Hrs Delivered By Post Complications Tubal Sterilization Discharge Date Comments 199 8 GDM Discharge Information Feeding Method Contraceptive Method Maternal HG B and HCT Levels
--- OUTSIDE RECORDS SUMMARY | 2024-05-15 15:33 | XMS_ITS | Clinical Summary ---
Author Organization [facility] Building [facility] Address [address] [place] [address] Care Team Providers Care Sprigger Name Role Phone Yon Palomino DO Primary Care Provider +1- [phone] Allergies Active Allergy Reactions Criticality Noted Date [...] procedures. She had colonoscopy and BE at [place] several months ago. Currently ibs with migratory [...] Request patient for cd of [facility]. If fever, nausea, vomiting occur please call or go to ER. 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 Surgical History Surgery Date Site/Laterality Comments HYSTERECTOMY 04/23/1998 - 04/22/1999 SECTION 04/23/1997 - 04/22/1998 LAPAROSCOPY 04/23/1992 - 04/22/19931995 COLONOSCOPY 04/18/2017 Medical History Medical History Date Comments Depression Insomnia Vaginal atrophy Family History Medical History Relation Name Comments Hypertension Father Stroke Father Cancer Sister breast Relation Name Status Comments Father Sister Social History Tobacco Use Types Packs/Day Years Used Date Smoking Tobacco: Former Cigarettes Smokeless Tobacco: Never Tobacco Cessation:Counseling Given: Not Answered Alcohol Use Standard Drinks/Week Comments Yes 0 (1 standard drink = 0.6 oz pure alcohol) thinks she might be an alcholoic AUDIT-C Answer Date Recorded Frequency of Alcohol Consumption 2-3 times a weabdoulaye chapin 11/28/2018 Average Number of Drinks 3 or 4 019 Frequency of Binge Drinking Never 11/2018 PHQ-2 Answer Date Recorded PHQ-2 Score 0 02/04/2019 Personal Safety Answer Date Recorded Getting School Help Needed Not on file 07/06 Comments Unknown Sex and Gender Information Value Date Recorded Sex Assigned at Not on file 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 Gender Identity Female 11/29/2020 8:21 AM CDT Sexual Orientation Straight 11/29/2020 8: 21 AM CDT Obstetrics History Last Filed Vital Signs Vital Sign Reading [...] 12/02/2023 4:07 PM CDT Plan of Treatment Health Maintenance Due Date Last Done Comments Albumin Creatinine Ratio, Urine 1964 Colon Cancer Screening-Colonoscopy 1964 Hemoglobin A1C 1964 Hepatitis C Screening 1964 Dilated Eye Exam 1964 Foot Exam 1964 Lipid Panel 1964 Pneumococcal vaccine <65 (1 of 2 - PCV) 02/02/1970 DTaP/Tdap/Td Vaccine (1 - Tdap) 02/02/1975 Hepatitis B Screening 02/02/1982 Regular Well Visit/Exam 18-64 02/02/1982 eGFR 12/04/2019 12/03/2018 Depression Screening 02/05/2020 02/04/2019, 02/05/20 Breast Cancer Screening-Mammogram 08/12/2023 023 Influenza Vaccine (#1) 2023 02/09/2019 Zoster Vaccine Completed 06/15/2020, 02/22/2020 Procedures Procedure Name Priority Date/Time Associated Diagnosis Comments SCREENING MAMMOGRAM BILATERAL W GI Schedule Routine, Read Routine (OP Routine) 08/11/2022 3:19 PM CDT Screening mammogram, encounter for EGFR Routine 12/03/2018 3:27 PM CDT Right lower quadrant abdominal pain from Last 3 Months or Most Recently Relevant to Health Maintenance Results * Screening Mammogram Bilateral W Gi (08/11/2022 3:19 PM CDT) Anatomical Region Laterality Modality Breast Bilateral Mammography Narrative 08/15/2022 3:32 PM CDT Mammogram Technique: Bilateral Digital Breast Tomosynthesis, Bilateral C-view 2D Screening mammogram. ??Views obtained: ??bilateral craniocaudal and bilateral mediolateral oblique. ??Computer Aided Detection was performed. Mammogram Findings: The present examination has been compared to prior imaging studies performed at [facility] on 10/09/2006, and at [facility] [employer] on 09/13/2006. There are scattered [...] compared to prior imaging studies performed at [facility] on 10/09/2006, and at [facility] on 09/13/2006. There are scattered [...] ??mL/min/1.73m2 *Relative to young adult level If -[place] Islander multiply value by 1.16. Estimated glomerular filtration [...] 3:27 PM CDT 12/03/2018 4:15 PM CDT Yolette Loja NP LAB BLOOD ORDERABLES Final Resul t JT SIMONS ([place]) 1 [facility] Department [place] [address] from Last 3 Months or Most Recently Relevant to Health Maintenance Insurance [employer] [facility] [id number] [facility] [id number] Care Teams Sprigger Relationship Specialty Start Date End Date Yon Palmoino DO PCP - General Internal Medicine 11/26/18
--- OUTSIDE RECORDS SUMMARY | 2024-05-15 15:33 | XMS_ITS | Patient Health Summary ---
Author Organization [facility] Address [address] [place] [address] Care Team Providers Care Banbury Machine Operator Name Role Phone Yon Palomino DO Primary Care Provider +1 [phone] Note from [facility],non-owned Affiliates and Associated Physician Practices is amultiple site organization consisting of ambulatory clinics and hospital sitesin [place], [place], [place] and [place]. This disclosure is being madepursuant to the Care Everywhere program and may not contain all information available regarding this patient. Last updated 18.[facility] Allergies No known active allergies Medications * Be aware that medications may not be up to date on this document. Alwaysverify current medications with the patient. 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 Immunizations * INFLUENZA VACCINE(Given 02/09/2019) Social History Tobacco Use Types Packs/Day Years Used Date Smoking Tobacco: Never Smokeless Tobacco: Never Alcohol Use Standard Drinks/Week Comments No 0 (1 standard drink = 0.6 oz pur e alcohol) Sex and Gender Information Value Date Recorded Sex Assigned at Not on file Gender Identity Not on file Sexual Orientation Not on file Last Filed Vital Signs Vital Sign Reading Time Taken Comments Blood Pressure 128/74 01/07/2019 10:54 AM CDT Pulse - - Temperature - - Respiratory Rate - - Oxygen Saturation - - Inhaled Oxygen Concentration - - Weight 64.4 kg (142 lb) 01/07/2019 10:54 AM CDT Height 160 cm (5' 3 ) 01/07/2019 10:54 AM CDT Body Mass Index 25.15 01/07/2019 10:54 AM CDT Procedures * CULTURE YEAST(Performed 08/06/2018) Performed for History of candidiasis * URINALYSIS - POINT OF CARE (AMB) [facility](Performed 05/29/2017) * SUSCEPTIBILITY YEAST(Performed 03/22/2017) * CULTURE YEAST WITH DIRECT FLUORESCENT YAMILKA(Performed 03/22/2017) * PH FLUID - POCT (AMB) [facility](Performed 03/07/2017) * WET PREP - POINT OF CARE (AMB) [facility](Performed 03/07/2017) * FUNGUS YAMILKA - POINT OF CARE (AMB) [facility](Performed 03/07/2017) Results * CULTURE YEAST (08/06/2018 11:17 AM CDT) Culture Yeast with ID [facility] Comment: ??CULTURE, YEAST, W/IDENTIFICATION ?MICRO NUMBER: ?[id number] ??TEST STATUS: ? FINAL ??SPECIMEN SOURCE: ?? VULVA ??SPECIMEN QUALITY: ??ADEQUATE ??RESULT: ?No fungal growth at 2 Weeks Test Performed at: [email or web address] ??[id number] JOI CORNEJO MD Microbiology ENTIRE VULVA / Unknown 08/06/2018 11:17 AM CDT 08/07/2018 12:19 AM CDT Eliza Gross APRN-ELECTRICIAN THIRD LAB - MICRO BIOLOGY ORDERABLES [facility] [address] [place] [address] * URINALYSIS - POINT OF CARE (AMB) [facility] (05/29/2017) Specific [place] UA n [facility] pH UA n [facility] WBC UA n [facility] Nitrite UA n [facility] Protein UA n [facility] Glucose UA n [facility] Ketones UA POCT n [facility] Urobilinogen UA n [facility] Bilirubin UA POCT n [facility] Blood Urine POCT n [facility] Urine specimen (specimen) 05/29/2017 Eliza Gross APRN-ELECTRICIAN THIRD LAB - POINT OF CARE ORDERABLES Performing Organization Address [facility] Co de Phone Number PENDING S[facility] [address] * SUSCEPTIBILITY YEAST (03/22/2017 7:00 AM PATTERNMAKER GRADER) Specimen Source VAGINAL [facility]) Identification MIREYA ALBICANS [facility]) Amphotericin B 0.500 mcg/mL [facility] ([facility]) Comment: No CLSI (formerly NCCLS) interpretive criteria are available for this organism with this drug. Anidulafungin DANE 0.060 S mcg/mL [facility] ([facility]) Caspofungin 0.030 S mcg/mL [facility] ([facility]) Fluconazole 0.250 S mcg/mL [facility] ([facility]) Flucytosine 0.250 S mcg/mL [facility] ([facility]) Itraconazole 0.060 S mcg/mL [facility] ([facility]) Micafungin DANE 0.015 S mcg/mL [facility] ([facility]) Posaconazole 0.030 S mcg/mL [facility] ([facility]) Voriconazole <=0.008 S mcg/mL [facility] ([facility]) Additional Information [facility] ([facility]) Comment: Drug concentrations are expressed in mcg/mL. S = Susceptible SD = Susceptible, Dose Dependent I = Intermediate R = Resistant NS = Non Susceptible Susceptible-Dose Dependent (S-DD): susceptibility of the azole is dependent on achieving maximum blood levels. This test was performed using a kit that has not been cleared or approved by the FDA. The analytical performance characteristics of this test have been determined by [facility]. This test should not be used for diagnosis without confirmation by other medically established means. Test Performed at: [facility], [facility] [address] [place], [place] ??[id number] Catrachito QUINONES 03/22/2017 7:00 AM PATTERNMAKER GRADER 03/08/2017 5:05 AM PATTERNMAKER GRADER Eliza Gross PROFESSIONAL WRESTLER-ELECTRICIAN THIRD LAB - MICRO BIOLOGY ORDERABLES [facility] ([facility]) * (ABNORMAL) CULTURE YEAST WITH DIRECT FLUORESCENT YAMILKA (03/22/2017 7:00 AM PATTERNMAKER GRADER) Smear SEE NOTE(A) [facility] ([facility]) Comment: ??CULTURE, YEAST, W/DIRECT FLUORESCENT YAMILKA ?MICRO NUMBER: ?[id number] ??TEST STATUS: ? FINAL ??SPECIMEN SOURCE: ?? VAGINAL ??SPECIMEN QUALITY: ??ADEQUATE ??SMEAR: ? Many Fungal elements seen ??RESULT: ?Mireya albicans NO COLLECTION DATE RECEIVED. WE HAVE USED THE DATE THE SPECIMEN WAS RECEIVED BY THIS LABORATORY THE COLLECTION DATE. IF THIS IS INCORRECT, PLEASE CONTACT CLIENT SERVICES. PHONE NUMBER: [phone] Test Performed at: [email or web address] ??[id number] JOI CORNEJO MD Vaginal swab (specimen) 03/22/2017 7:00 AM PATTERNMAKER GRADER 03/08/2017 5:05 AM PATTERNMAKER GRADER Narrative [facility] ([facility]) - 03/22/2017 7:00 AM PATTERNMAKER GRADER Please allow culture to grow for two weeks before finalizing Please check for all mireya species including mireya glabrata Please check for sensitivities even for mireya albicans result Please check for sensitivities for these drugs: 1. 5-Flucytosine 2. Itraconazole 3. Fluconazole 4. Amphotericin B Specimen Type->Vaginal swab yeast Eliza Gross PROFESSIONAL WRESTLER-ELECTRICIAN THIRD LAB - MICRO BIOLOGY ORDERABLES [facility] ([facility]) * PH FLUID - POCT (AMB) U (03/07/2017) pH Vaginal 5.0 [facility] Vaginal swab (specimen) 03/07/2017 Eliza Gross PROFESSIONAL WRESTLER-ELECTRICIAN THIRD LAB - POINT OF CARE ORDERABLES [facility] * WET PREP - POINT OF CARE (AMB) U (03/07/2017) pH Wet Prep 5.0 [facility] Yeast Wet Prep n [facility] Trichomonas Wet Prep n [facility]END[facility] Bacteria Wet Prep n [facility] Whiff Test n [facility] 03/07/2017 Eliza Gross PROFESSIONAL WRESTLER-ELECTRICIAN THIRD LAB - POINT OF CARE ORDERABLES PENDING [facility] * FUNGUS YAMILKA - POINT OF CARE (AMB) U (03/07/2017) YAMILKA Prep n [facility] Fluid specimen (specimen) 03/07/2017 Eliza Gross PROFESSIONAL WRESTLER-ELECTRICIAN THIRD LAB - POINT OF CARE ORDERABLES [facility] Care Teams Banbury Machine Operator Relationship Specialty Start Date End Date Yon Palomino DO PCP - General 10/30/17
--- OUTSIDE RECORDS SUMMARY | 2024-05-15 15:33 | XMS_ITS | Clinical Summary ---
Author Organization [facility] Address [address] [place] [address] Care Team Providers Care Refueler Name Role Phone Yon Palomino DO Primary Care Provider +1- [phone] Source Comments [facility],non-owned Affiliates and Associated Physician Practices is amultiple site organization consisting of ambulatory clinics and hospital sitesin [place], [place], [place] and [place]. This disclosure is being madepursuant to the Care Everywhere program and may not contain all information available regarding this patient. Last updated 18.[facility] Allergies No known active allergies Medications * Be aware that medications may not be up to date on this document. Alwaysverify current medications with the patient. 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 Immunizations Name Administration Dates Next Due INFLUENZA VACCINE 02/09/2019 Family History Medical History Relation Name Comments CAD (Coronary Artery Disease) Father [place] CVA Father Cancer - Pancreatic Maternal Grandfather Cancer - Pancreatic Maternal Uncle COPD - Chronic Obstructive Pulmonary Disease Mother Relation Name Status Comments Father Maternal Grandfather Maternal Grandmother Maternal Uncle Mother Paternal Grandfather Paternal Grandmother Social History Tobacco Use Types Packs/Day Years [...] Mass Index 25.15 01/07/2019 10:54 AM CDT Plan of Treatment Health Maintenance Due Date Last Done Comments COLOGUARD (AGES 45-75) - COL ON CA SCREENING 1964 COLON MONITORING 1964 COLONOSCOPY - COLON CA SCREENING 1964 CT COLONOGRAPHY - COLON CA SCREENING 1964 Colorectal Cancer Screening 1964 FIT - COLON CA SCREENING 1964 FLEX SIG - COLON CA SCREENING 1964 LIPID TESTING 1964 MAMMOGRAM 1964 HIV SCREENING 02/02/1979 HEPATITIS C SCREENING 01/29/1982 DTAP/TDAP/TD VACCINES (1 - Tdap) 02/02/1983 PNEUMOCOCCAL VACCINE 50+ (1 of 1 - PCV) 02/02/2014 ZOSTER VACCINE (1 of 2) 02/02/2014 SCREENING FOR DIABETES 05/22/2018 COVID-19 VACCINE (1 - 2023-2 5 season) 2023 INFLUENZA VACCINE (#1) 2023 02/09/2019 DEPRESSION SCREENING 04/23/2024 Respiratory Syncytial Virus (RSV) Vaccine Pt: or over 60 yrs (1 - 1-dose 75+ series) 02/02/2039 HEPATITIS B VACCINE Aged Out No longe r eligible based on patient's age to complete this topic HIB VACCINE Aged Out No longer eligi ble based on patient's age to complete this topic HPV VACCINE Aged Out No longer eligi ble based on patient's age to complete this topic MENINGOCOCCAL (Group B) VACCINE Aged Out No longer eligible based on patient's age to complete this topic MENINGOCOCCAL VACCINE Aged Out No alma lata eligible based on patient's age to complete this topic PNEUMOCOCCAL VACCINE Aged Out No long er eligible based on patient's age to complete this topic Care Teams Refueler Relationship Specialty Start Date End Date Yon Palomino DO PCP - General 10/30/17
--- OUTSIDE RECORDS SUMMARY | 2024-05-15 15:33 | XMS_ITS | Referral Summary ---
Author Organization [facility] [employer] Address [address] [place] [address] Care Team Providers Care Airworthiness Inspector Name Role Phone Yon Palomino DO Primary Care Provider +1- [phone] Source Comments [facility],non-owned Affiliates and Associated Physician Practices is amultiple site organization consisting of ambulatory clinics and hospital sitesin [place], [place], [place] and [place]. This disclosure is being madepursuant to the Care Everywhere program and may not contain all information available regarding this patient. Last updated 18.[facility] [employer] Allergies No known active allergies Medications * [...] Administration Dates Next Due INFLUENZA VACCINE 02/09/2019 Social History Tobacco Use Types Packs/Day Years [...] 01/07/2019 10:54 AM CDT Plan of Treatment Not on file Care Teams Airworthiness Inspector Relationship Specialty Start Date End Date Yon Palomino DO PCP - General 10/30/17
== END 2024-05-13 10:43 | disposition home or self-care (01) ==
PROVIDERS: Emergency Provider Emergency Medicine; PCP Internal Medicine
DX: N20.1 Calculus of ureter (principal); Z79.899 Other long term (current) drug therapy; E55.9 Vitamin D deficiency, unspecified; E53.8 Deficiency of other specified B group vitamins; Z87.891 Personal history of nicotine dependence
CPT/HCPCS: 36415; 74177; 80053; 81003; 85025; 96374; 96375; 96376; 99284; A9270; J1171; J1885; J2405; Q9967

== ENCOUNTER 2024-05-19 14:46 | Outpatient (CLI) | payer OTHER, SELFPAY ==
--- NOTE | ~2024-05-19 | XR_ITS ---
EXAMINATION: XR abdomen/kub 1V DATE: 05/19/2024 15:04 INDICATION: Left ureteral stone. TECHNIQUE: A supine view of the abdomen on 2 radiographs was obtained. COMPARISON: CT abdomen and pelvis 05/13/2024 FINDINGS: There are no dilated loops of bowel. There is a moderate volume of stool in the colon. IMPRESSION: 1. No visible urolithiasis. Reviewed, dictated and finalized at location A. ENER IMPRESSION: 1. No visible urolithiasis.
--- OUTSIDE RECORDS SUMMARY | 2024-05-19 15:40 | XMS_ITS | Referral Summary ---
Author Organization [facility] Address [address] [place] [address] Care Team Providers Care Attending Pathologist Name Role Phone Yon Palomino DO Primary Care Provider +1- [phone] Source Comments [facility],non-owned Affiliates and Associated Physician Practices is amultiple site organization consisting of ambulatory clinics and hospital sitesin [place], [place], [place] and [place]. This disclosure is being madepursuant to the Care Everywhere program and may not contain all information available regarding this patient. Last updated 18.[facility] Allergies No known active allergies Medications * [...] of Treatment Not on file Care Teams Attending Pathologist Relationship Specialty Start Date End Date Yon Palomino DO PCP - General 10/30/17
--- OUTSIDE RECORDS SUMMARY | 2024-05-19 15:40 | XMS_ITS | Clinical Summary ---
Author Organization [facility] Office Building [facility] Address [address] [place] [address] Care Team Providers Care Welding Machine Operator Electron Beam Name Role Phone Yon Palomino DO Primary Care Provider +1- [phone] Allergies Active Allergy Reactions Criticality Noted Date [...] procedures. She had colonoscopy and BE at [place] several months ago. Currently ibs with migratory [...] Request patient for cd of CT from [facility]. 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 There are scattered [...] compared to prior imaging studies performed at [facility] on 10/09/2006, and at [facility] on 09/13/2006. There are scattered [...] ??mL/min/1.73m2 *Relative to young adult level If -Maltese multiply value by 1.16. Estimated glomerular filtration [...] BLOOD ORDERABLES Final Resul t JT SIMONS ([place]) 1 [facility] [place] [address] from Last 3 Months or Most Recently Relevant to Health Maintenance Insurance [employer] [place] [facility] [id number] [facility] [id number] Care Teams Welding Machine Operator Electron Beam Relationship Specialty Start Date End Date Yon Palomino DO PCP - General Internal Medicine 11/26/18
--- OUTSIDE RECORDS SUMMARY | 2024-05-19 15:40 | XMS_ITS | Referral Summary ---
Author Organization [facility] Medical Office Building B Address [address] [place] [address] Care Team Providers Care Medical Research Associate Name Role Phone Yon Palomino DO Primary Care Provider +1- [phone] Allergies Active Allergy Reactions Criticality Noted Date [...] procedures. She had colonoscopy and BE at [place] several months ago. Currently ibs with migratory [...] Request patient for cd of CT from [facility]. 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 There are [...] compared to prior imaging studies performed at [facility] on 10/09/2006, and at [facility] on 09/13/2006. There are [...] ??mL/min/1.73m2 *Relative to young adult level If -[place] multiply value by 1.16. Estimated glomerular filtration [...] 12/03/2018 4:15 PM CDT us Yolette Loja PRACTICE PROFESSIONAL LAB BLOOD ORDERABLES Final Resul t [facility] 1 [facility] [place] [address] from Last 3 Months or Most Recently Relevant to Health Maintenance Insurance [employer] [facility] [place] [address] [facility] [id number] [facility] [id number] Care Teams Medical Research Associate Relationship Specialty Start Date End Date Yon Palomino DO PCP - General Internal Medicine 11/26/18
--- OUTSIDE RECORDS SUMMARY | 2024-05-19 15:40 | XMS_ITS | Clinical Summary ---
Author Organization [facility] [email or web address] Address [address] [place] [address] Care Team Providers Care Collet Gluer Name Role Phone Yon Palomino DO Primary Care Provider +1- [phone] Source Comments [facility] [email or web address],non-owned Affiliates and Associated Physician Practices is amultiple site organization consisting of ambulatory clinics and hospital sitesin [place], [place] and [place]. This disclosure is being madepursuant to the Care Everywhere program and may not contain all information available regarding this patient. Last updated 18.[facility] [email or web address] Allergies No known active allergies Medications * [...] Name Comments CAD (Coronary Artery Disease) Father [place] CVA Father Cancer - Pancreatic Maternal Grandfather [...] age to complete this topic Care Teams Collet Gluer Relationship Specialty Start Date End Date Yon Palomino DO PCP - General 10/30/17
--- OUTSIDE RECORDS SUMMARY | 2024-05-19 15:40 | XMS_ITS | Data Portability ---
Author Organization [facility] Address [address] [place] [address] Care Team Providers Care Relief Driller Name Role Phone JO ANN ASCENCIO Primary Care Provider [phone] Assessment Encounter Date Assessment Date Assessment LastModified by Organization Details LastModified Time 08/11/2022 08/11/2022 healthy female exam/menopaus e patient declines std testing pap- none further mammogram today colonoscopy due 2030 dexa ordered and encouraged Encouraged weight bearing exercise and 1500mg daily of Calcium with Vitamin D FU 1 year or prn [email or web address] Not available 08/11/2022 11:41:15 Plan of Treatment Reminders Order Date Submit Date Provider Last Modified By Organization Details Last Modified Time Details Appointments None recorded. Lab None recorded. Referral None recorded. Procedures None recorded. Surgeries None recorded. Imaging None recorded. Medication Orders nystatin-t riamcinolo ne 100,000 unit/gram- 0.1 % topical ointment 2022 023 [email or web address] 1 [id number], [address] [place], [address], 3 10:02:38 Estrace 0.01% (0.1 mg/gram) vaginal cream 2022 023 [place] [id number], [address] [place], [address], 3 10:03:21 Estrace 0.01% (0.1 mg/gram) vaginal cream 2022 023 [place] [id number], [address] [place], [address], 10:34:20 Patient TargetsNo targets recorded. Patient InstructionsNo instructions recorded. Reason for Referral None Reported. Results Created Date Observation Date Name Description Value Unit Range Abnormal Flag Note LastModifiedBy Organization Detail LastModifiedTime 08/25/19 23 08/24/2022 CT/GC AND TRICH OMONA S VAGIN MAMIE (RRNA ), SWAB chlamydia trachomatis, PCR Negati ve negati ve Not Available [facility] (Lab) [address], [place], [address], 08/27/2022 10:36:36 08/25/19 23 08/24/2022 CT/GC AND TRICH OMONA S VAGIN MAMIE (RRNA ), SWAB neisseria gonorrhoeae, PCR Negati ve negati ve Not Available [facility] (Lab) [address], [place], [address], 08/27/2022 10:36:36 08/25/19 23 08/24/2022 CT/GC AND TRICH OMONA S VAGIN MAMIE (RRNA ), SWAB trichomonas vaginalis ribosomal RNA (rrna) Negati ve negati ve Not Available [facility] (Lab) [address], [place], [address], 08/27/2022 10:36:36 08/25/19 23 08/24/2022 CULTU RE: HERPE S SIMPL EX VIRUS (HSV) , REFLE X TYPIN G source LESION SCRAPI NGS Not Available [facility] (Lab) [address], [place], [address], 08/27/2022 10:36:37 08/25/19 23 08/24/2022 CULTU RE: HERPE S SIMPL EX VIRUS (HSV) , REFLE X TYPIN G hsv culture, body fluid NOT ISOLAT ED right labia minor a Perfo rming Organ izati on Infor matio n: Site ID: CB Name: [facility] Addre ss: [address] [place] [address] Direc tor: Delfin kwan Not Available [facility] (Lab) [address], [place], [address], 08/27/2022 10:36:37 02/24/20 23 02/23/2023 DEXA No observ ation record ed. [facility] [address], [place], [address], 06/10/2023 19:49:57 Result Notes None recorded. Problems Name Problem SNOMED Code Status Onset Date Resolution Date Notes Provider Name and Address Organization Details Recorded Time Premature menopause 377110133 Active 2022 age 35- surgic al, HRT only 1-2 years Aurelia Miller MD [address], [place], [address], [facility] 3 11:23:31 Osteopenia 252247926 Active 2022 Aurelia Miller MD [address], [place], [address], [facility] 3 11:23:39 Type 2 diabetes mellitus 53700414 Active 2022 Aurelia Miller MD [address], [place], [address], [facility] 3 11:23:45 Anxiety 99996715 Active 2022 Aurleia Miller MD [address], [place], [address], [facility] 3 11:24:11 History of hysterectomy 135250341 Active 2022 LAVH/B SO endo/o v cysts Aurelia Miller MD [address], [place], [address], [facility] 3 11:24:36 Problem Notes None recorded. Procedures Surgical History Date Name Laterality Status Provider Name and Address Organization Details Recorded Time 06/07/19 22 Date of Last Mammogram completed Lazara Brantley [facility] 08/11/2022 10:56:15 04/23/19 21 Breast Biopsy completed Peyton Rudolph [facility] 11/16/2022 15:08:22 03/24/20 20 Date of Last [facility] 08/24/2022 12:46:53 03/24/20 20 completed Grace Meyer [facility] 08/24/2022 12:46:53 03/24/20 20 [facility] 11/16/2022 14:57:54 04/23/19 19 Most Recent Bone Density [facility] 08/24/2022 12:46:53 04/23/19 18 Date of Last Pap Smear completed Grace Meyer [facility] 08/24/2022 12:46:53 04/18/20 17 Colonoscopy completed Peyton Rudolph [facility] 11/16/2022 15:08:07 04/23/19 09 LEEP completed Peyton Rudolph [facility] 11/16/2022 14:55:41 04/23/19 00 Total Hysterectomy completed Peyton Rudolph [facility] 11/16/2022 14:56:08 04/23/18 98 Tubal Ligation completed Peyton Rudolph [facility] 11/16/2022 14:56:03 04/23/18 93 Laparoscopy completed Peytonmoi Rudolph [facility] 11/16/2022 15:07:41 03/24/19 88 Caesarean Section completed [facility] 11/06/2022 10:03:41 Hysteroscopy completed Lazara Brantley [facility] 08/11/2022 09:34:06 Endometrial Ablation completed Grace Olsonfidel [facility] 08/24/2022 12:47:05 Endometrial [address] completed [facility] 08/24/2022 12:47:05 Imaging Results Imaging Date Name Status LastModified by Organizatio n Details LastModified Time 02/23/[address] [facility] [address] [address], [place], [address], 06/10/2023 19:49:57 Procedure Notes None recorded. Medical Equipment None Reported. Allergies Allergen ID Allergen Name Allergen Category Reaction Reaction Severity Criticality Documentation Date Start Date Code Code System Note Provider Name and Address Organization Details Recorded Time Product containin g penicilli n and antibioti c (product) medicatio n respirato ry distress moderate Not available 08/11/2022 65032 05 SNOMED Lazara rascon [facility] 3 11:14:11 Substance with sulfonami de structure and antibacte rial mechanism of action (substanc e) medicatio n Not available Not available Not available 08/11/2022 [address] [facility] Lazara rascon [facility] 3 11:14:19 Medications Name Sig Start [...] Updated DateTime 08/11/2022 160.02 cm 26 kg/m2 67702.08 g 110 mm[Hg] 62 mm[Hg] [facility] 11:11:08 Date Recorded Body height Systolic blood pressure Diastolic blood pressure Provider Name and Address Organization Details Last Updated DateTime 08/24/2022 160.02 cm 117 mm[Hg] 78 mm[Hg] [facility] 08/24/2022 12:46:42 Date Recorded Body height Systolic blood pressure Diastolic blood pressure Provider Name and Address Organization Details Last Updated DateTime 09/06/2022 160.02 cm 119 mm[Hg] 78 mm[Hg] [facility] 09/06/2022 09:43:31 Date Recorded Body height Body mass index (BMI) Body weight Systolic blood pressure Diastolic blood pressure Provider Name and Address Organization Details Last Updated DateTime 11/06/2022 160.02 cm 25.9 kg/m2 11530.49 g 125 mm[Hg] 84 mm[Hg] Peyton Rudolph [facility] 10:02:29 Social History Question Answer Notes LastModified by Organizat ion Details LastModified Time Tobacco Smoking Status Former Smoker Alicia Segovia tarah, [facility] 11/06/2022 09:42:42 What Is Your Level [...] Or The Highest Degree You Have Received? 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 [id number] Information not available 08/24/2022 Do You Use Any Illicit Or Recreational Drugs? No Information not available 08/24/2022 Do You Use Sunscreen Routinely? Yes Information not available 08/24/2022 Has Tobacco Cessation Counseling Been Provided? No [email or web address] Information not available 11/06/2022 Have You Used IV Drugs? No Information not available 08/24/2022 Do You Or Have You Ever Used Any Other Forms Of Tobacco Or Nicotine? No [email or web address] Information not available 11/06/2022 Sex: Unknown Functional Status Question Answer Note LastModified by Organizat ion Details LastModified Time Do you have difficulty walking or climbing stairs? No [email or web address] Information not available 11/06/2022 Are you able to walk? [email or web address] Information not available 08/24/2022 Are you able to care for yourself? Yes [email or web address] Information not available 11/06/2022 Do you have difficulty dressing or bathing? No [email or web address] Information not available 11/06/2022 What is your [...] SNOMED-CT Code Diagnosis ICD10 Code Diagnosis Note [id number] Aurelia Miller MD [facility] [address] [address] 08/11/2022 10:34:14 08/11/2022 11:42:21 Gynecologic examination 62496411 Z01.419 History of hysterectomy 604725551 Z90.711 Osteopenia 897773400 M85 .80 Premature menopause 3737 20438 E28.319 [id number] KENNY Ortiz [facility] [address] [address] 08/24/2022 12:38:41 08/24/2022 14:11:44 Vulval irritation 026053023 N90.89 Irritation around vaginal openingSTI testing sentHSV [...] review of plan of care. 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 Dyspareunia 35805227 N94 .10 [id number] KENNY Ortiz [facility] [address],[place] [address] 11/06/2022 09:42:25 11/06/2022 10:37:01 Atrophic vulva 603203106 N90.5 significan t improvemen t in irritation [...] Anaya Member ID Guarantor Name 08/11/2022 1 [facility] [employer] [id number] Marisela Aline [id number] OI Marisela Aline 08/24/2022 1 [facility] BENEFITS PLAN [id number] Marisela Aline [id number] OI Marisela Aline 09/06/2022 1 [facility] BENEFITS PLAN [id number] Marisela Aline [id number] OI Marisela Aline 11/06/2022 1 [facility] BENEFITS PLAN [id number] Marisela Aline [id number] OI Marisela [place] Notes Date Note Type Note Provider Name [...] concerns- Aurelia Miller MD [address], [place], [address], MARIA FARERI [facility] 08/11/2022 11:41:46 3 text/html 57yopresents for evaluation of vulvar irritationsymptoms started 3-4 days ago after ICnoticed irritation, burning, itching around vaginal openingthis frequently happens after ICuses coconut oil as lubricationSA with steady male partneruses OTC HUTCHINSON vaginal moisturizerneg d/cneg n/v/fneg pelvic pain KENNY Ortiz [address], [place], [address], [facility] 08/24/2022 13:47:00 3 text/html 57yopresents for evaluation of vulvar irritations/p hyst/BSO at age 35 for endometriosis/ ovarian cysthas been experiencing vaginal dryness, irritation for yearsIC is painfulhas used OTC HUTCHINSON products with some improvementused nystatin/triamcinolone ointment and this helped some KENNY Ortiz [address], [place], [address], [facility] 09/06/2022 10:11:23 3 text/html 57yopresents for f/ustarted [facility] sometimeshas not noticed a significant improvement with IC, however irritation has improved s/p hyst/BSO at age 35 for endometriosis/ ovarian cysthas been experiencing vaginal dryness, irritation for yearsIC is painful KENNY Ortiz [address], [place], [address], [facility] 11/06/2022 10:36:17 OBGyn Episode Ob Episode Information Episode Created Date Number of Fetuses Patient Bloodtype Patient rh Status Prepregnancy Weight lbs Domestic Partner Domestic Partner Phone Father Name Sketch Maker Status 08/12/19 23 1 CLOSED Fetus Data First Name Last Name Admitted to NICU Weight (g) Sex Living Outcome Pediatric Complications Fetus ID Race Codes Race Delivery Type , Spontane ous [id number] Nirmal Calculation Initial Nirmal Date Initial Exam [...] Domestic Partner Domestic Partner Phone Father Name Sketch Maker Status 08/12/19 23 1 CLOSED Fetus Data First Name Last Name Admitted to NICU Weight (g) Sex Living Outcome Pediatric Complications Fetus ID Race Codes Race Delivery Type 5244.43 0704 M Full Term [id number] Primary Nirmal Calculation Initial Nirmal Date Initial [...]
--- OUTSIDE RECORDS SUMMARY | 2024-05-19 15:40 | XMS_ITS | Encounter Summary ---
Author Organization [facility] Address [address] [place] [address] Care Team Providers Care Vehicle Calibration Engineer Name Role Phone Yon Palomino DO Primary Care Provider [phone] Encounter Details Date Type Department Care Team (Late st Contact Info) Description 09/05/2018 Telephone [facility] [address] [place] [address] [id number] Eliza Gross, FLAT SPRING ASSEMBLER-[facility] [address] [address] Social History Tobacco Use Types [...] on filedocumented in this encounter Care Teams Vehicle Calibration Engineer Relationship Specialty Start Date End Date Yon Palomino DO PCP - General 10/30/17 documented as of this encounter
--- OUTSIDE RECORDS SUMMARY | 2024-05-19 15:40 | XMS_ITS | Patient Health Summary ---
Author Organization [facility] Address [address] [address] Care Team Providers Care Senior Programmer Name Role Phone Yon Palomino DO Primary Care Provider [phone] Note from [facility],non-owned Affiliates and Associated Physician Practices is amultiple site organization consisting of ambulatory clinics and hospital sitesin [place], [place], [place] and [place]. This disclosure is being madepursuant to the Care Everywhere program and may not contain all information available regarding this patient. Last updated 18.[facility] Allergies No known active allergies Medications * [...] [facility] Comment: ??CULTURE, YEAST, W/IDENTIFICATION ?MICRO NUMBER: ?[id number] ??TEST STATUS: ? FINAL ??SPECIMEN SOURCE: ?? VULVA ??SPECIMEN QUALITY: ??ADEQUATE ??RESULT: ?No fungal growth at 2 Weeks Test Performed at: [facility] ??[address] JOI CORNEJO MD Microbiology ENTIRE VULVA / Unknown 08/06/2018 11:17 AM CDT 08/07/2018 12:19 AM CDT Eliza Gross APRN-CLOTH EXAMINER LAB - MICRO BIOLOGY ORDERABLES [facility] [address] [place] [address] * URINALYSIS - POINT OF CARE (AMB) [facility] (05/29/2017) Specific [place] UA n [facility] pH UA n [facility] WBC UA n [facility] Nitrite UA n [facility] Protein UA n [facility] Glucose UA n [facility] Ketones UA POCT n [facility] Urobilinogen UA n [facility] Bilirubin UA POCT n [facility] Blood Urine POCT n [facility] Urine specimen (specimen) 05/29/2017 Eliza Gross APRN-CLOTH EXAMINER LAB - POINT OF CARE ORDERABLES Performing Organization Address [facility] Co de Phone Number [facility] [address] * SUSCEPTIBILITY YEAST (03/22/2017 7:00 AM RESEARCH AND DEVELOPMENT RESEARCHER) Specimen Source VAGINAL [facility] ([facility]) Identification MIREYA ALBICANS [facility] ([facility]) Amphotericin B 0.500 mcg/mL [facility] ([facility]) Comment: No CLSI (formerly NCCLS) interpretive criteria are available for this organism with this drug. Anidulafungin DANE 0.060 S mcg/mL [facility] ([facility]) Caspofungin 0.030 S mcg/mL [facility] ([facility]) Fluconazole 0.250 S mcg/mL [facility] ([facility]) Flucytosine 0.250 S mcg/mL [facility] ([facility]) Itraconazole 0.060 S mcg/mL [facility] ([facility]) Micafungin DANE 0.015 S mcg/mL [facility] ([facility]) Posaconazole 0.030 S mcg/mL [facility] ([facility]) Voriconazole <=0.008 S mcg/mL [facility] ([facility]) Additional Information [facility] ([facility]) Comment: Drug concentrations are expressed in [...] of this test have been determined by [facility]. This test should not be used for diagnosis without confirmation by other medically established means. Test Performed at: [facility] [address] [place], [place] ??[address] Catrachito QUINONES 03/22/2017 7:00 AM RESEARCH AND DEVELOPMENT RESEARCHER 03/08/2017 5:05 AM RESEARCH AND DEVELOPMENT RESEARCHER Eliza Gross TIN CAN LABORER-CLOTH EXAMINER LAB - MICRO BIOLOGY ORDERABLES [facility] ([facility]) * (ABNORMAL) CULTURE YEAST WITH DIRECT FLUORESCENT YAMILKA (03/22/2017 7:00 AM RESEARCH AND DEVELOPMENT RESEARCHER) Smear SEE NOTE(A) [facility] ([facility]) Comment: ??CULTURE, YEAST, W/DIRECT FLUORESCENT YAMILKA ?MICRO NUMBER: ?[id number] ??TEST STATUS: ? FINAL ??SPECIMEN SOURCE: ?? VAGINAL ??SPECIMEN QUALITY: ??ADEQUATE ??SMEAR: ? Many Fungal elements seen ??RESULT: ?Mireya albicans NO COLLECTION DATE RECEIVED. WE HAVE USED THE DATE THE SPECIMEN WAS RECEIVED BY THIS LABORATORY THE COLLECTION DATE. IF THIS IS INCORRECT, PLEASE CONTACT CLIENT SERVICES. PHONE NUMBER: [phone] Test Performed at: [facility] ??[address] JOI CORNEJO MD Vaginal swab (specimen) 03/22/2017 7:00 AM RESEARCH AND DEVELOPMENT RESEARCHER 03/08/2017 5:05 AM RESEARCH AND DEVELOPMENT RESEARCHER Narrative [facility] ([facility]) - 03/22/2017 7:00 AM RESEARCH AND DEVELOPMENT RESEARCHER Please allow culture to grow for two weeks before finalizing Please check for all mireya species including mireya glabrata Please check for sensitivities even for mireya albicans result Please check for sensitivities for these drugs: 1. 5-Flucytosine 2. Itraconazole 3. Fluconazole 4. Amphotericin B Specimen Type->Vaginal swab yeast Eliza Gross TIN CAN LABORER-CLOTH EXAMINER LAB - MICRO BIOLOGY ORDERABLES [facility] ([facility]) * PH FLUID - POCT (AMB) U (03/07/2017) pH Vaginal 5.0 [facility] Vaginal swab (specimen) 03/07/2017 Eliza Gross TIN CAN LABORER-CLOTH EXAMINER LAB - POINT OF CARE ORDERABLES [facility] * WET PREP - POINT OF CARE (AMB) U (03/07/2017) pH Wet Prep 5.0 [facility] Yeast Wet Prep n [facility] Trichomonas Wet Prep n [facility] Bacteria Wet Prep n [facility] Whiff Test n [facility] 03/07/2017 Eliza Gross TIN CAN LABORER-CLOTH EXAMINER LAB - POINT OF CARE ORDERABLES [facility] * FUNGUS YAMILKA - POINT OF CARE (AMB) U (03/07/2017) YAMILKA Prep n [facility] Fluid specimen (specimen) 03/07/2017 Eliza Gross TIN CAN LABORER-CLOTH EXAMINER LAB - POINT OF CARE ORDERABLES [facility] Care Teams Senior Programmer Relationship Specialty Start Date End Date Yon Palomino DO PCP - General 10/30/17
== END 2024-05-19 14:47 | disposition home or self-care (01) ==
PROVIDERS: PCP Internal Medicine; Visit Provider Urology
DX: N20.1 Calculus of ureter (principal)
CPT/HCPCS: 74018

== ENCOUNTER 2024-08-08 10:37 | Outpatient (CLI) | payer OTHER, SELFPAY ==
--- NOTE | ~2024-08-08 | XR_ITS ---
Clinical Indication: Cough PA and lateral views of the chest: Comparison: 03/08/2022 Findings: The lungs are clear, without evidence of focal consolidation or pleural effusion. Cardiome diastinal silhouette is within normal limits. Bones and soft tissues are unremarkable. Impression: Normal chest. Reviewed, dictated and finalized at location . Impression: Normal chest.
--- OUTSIDE RECORDS SUMMARY | 2024-08-08 10:42 | XMS_ITS | Referral Summary ---
Author Organization [facility] Address [address] [place] [address] Care Team Providers Care Diamond Cleaner Name Role Phone Yon Palomino DO Primary Care Provider [phone]- [phone] Allergies Active Allergy Reactions Criticality Noted Date [...] procedures. She had colonoscopy and BE at [facility] several months ago. Currently ibs with migratory [...] on file Legal Sex Female 6:56 AM BACK LINE COOK Gender Identity Female 11/29/2020 8:21 AM CDT Sexual Orientation Straight 11/29/2020 8: 21 AM CDT Last Filed Vital Signs Vital Sign Reading Time Taken Comments Blood Pressure 133/87 12/02/2023 4:07 PM CDT Pulse 78 12/02/2023 4:07 PM CDT Temperature 36.6 C (97.8 F) 12/02/2023 4:07 PM CDT Respiratory Rate 16 12/02/2023 4:07 PM CDT [...] compared to prior imaging studies performed at [facility] on 10/09/2006, and at [facility] on 09/13/2006. There are scattered areas of fibroglandular density. There is no suspicious abnormality in either breast. There are no significant changes from the prior study. Impression: Finding is benign. Annual screening mammography is recommended. OVERALL FINAL ASSESSMENT: BI-RADS CATEGORY 2: Benign. Procedure Note Dayana Gallardo MD - 08/15/2022 Mammogram Technique: Bilateral Digital Breast Tomosynthesis, Bilateral C-view 2D Screening mammogram. Views obtained: bilateral craniocaudal and bilateral mediolateral oblique. Computer Aided Detection was performed. Mammogram Findings: The present examination has been compared to prior imaging studies performed at [facility] on 10/09/2006, and at [facility] on 09/13/2006. There [...] (ESSENCE) Comment: Interpretive Data Reference Interval Normal >/= 90 mL/min/1.73m2 Mildly decreased* 60 - 89 mL/min/1.73m2 Mildly to moderately decreased 45 - 59 mL/min/1.73m2 Moderately to severely decreased 30 - 44 mL/min/1.73m2 Severely decreased 15 - 29 mL/min/1.73m2 Kidney Failure < 15 mL/min/1.73m2 *Relative to young adult level If -Cypriot multiply value by 1.16. Estimated glomerular filtration [...] 12/03/2018 4:15 PM CDT us Yolette Loja FREIGHT CLAIM INVESTIGATOR LAB BLOOD ORDERABLES Final Resul t [facility]) [address] [facility] Department of Laboratories [place], [place] [id number] from Last 3 Months or Most Recently Relevant to Health Maintenance Insurance [place] [facility] [id number] [facility] [id number] Member Subscriber Plan / Payer (Ef fective 2020-Present) Name:Marisela Mireles Member ID:[id number] Relation to Subscriber:Self Name:Jennifer Mirelesjulian Burk Subscriber ID:[id number] Payer ID:[id number] Type:[employer] HMO/PPO Address: [facility] [id number] [phone] Care Teams Diamond Cleaner Relationship Specialty Start Date End Date Yon Palomino DO PCP - General Internal Medicine 11/26/18
--- OUTSIDE RECORDS SUMMARY | 2024-08-08 10:42 | XMS_ITS | Data Portability ---
Author Organization [facility] Address [address] [place] [address] Care Team Providers Care Compressor Stations Superintendent Name Role Phone JO ANN ASCENCIO Primary Care Provider [phone] Assessment Encounter Date Assessment Date Assessment LastModified by Organization Details LastModified Time 08/11/2022 08/11/2022 healthy female exam/menopaus e patient declines std testing pap- none further mammogram today colonoscopy due 2030 dexa ordered and encouraged Encouraged weight bearing exercise and 1500mg daily of Calcium with Vitamin D FU 1 year or prn [email or web address] Not available 08/11/2022 11:41:15 Plan of Treatment Reminders Order Date Submit Date Provider Last Modified By Organization Details Last Modified Time Details Appointments None recorded. Lab None recorded. Referral None recorded. Procedures None recorded. Surgeries None recorded. Imaging None recorded. Medication Orders Estrace 0.01% (0.1 mg/gram) vaginal cream 2022 023 [id number], [address] [place], [address], 3 10:34:20 Estrace 0.01% (0.1 mg/gram) vaginal cream 2022 023 [facility][id number], [address] [place], [address], 3 10:03:21 nystatin-t riamcinolo ne 100,000 unit/gram- 0.1 % topical ointment 2022 023 [email or web address] 1 [id number], [address] [place], [address], 10:02:38 Patient TargetsNo targets recorded. Patient InstructionsNo instructions recorded. Reason for Referral None Reported. Results Created Date Observation Date Name Description Value Unit Range Abnormal Flag Note LastModifiedBy Organization Detail LastModifiedTime 08/25/19 23 08/24/2022 CT/GC AND TRICH OMONA S VAGIN MAMIE (RRNA ), SWAB chlamydia trachomatis, PCR Negati ve negati ve Not Available [facility] (Lab) [address], [place], [address], 08/27/2022 10:36:36 08/25/19 23 08/24/2022 CT/GC AND TRICH OMONA S VAGIN MAMIE (RRNA ), SWAB neisseria gonorrhoeae, PCR Negati ve negati ve Not Available [facility] (Lab) [address], [place], [address], 08/27/2022 10:36:36 08/25/19 23 08/24/2022 CT/GC AND TRICH OMONA S VAGIN MAMIE (RRNA ), SWAB trichomonas vaginalis ribosomal RNA (rrna) Negati ve negati ve Not Available [facility] (Lab) [address], [place], [address], 08/27/2022 10:36:36 08/25/19 23 08/24/2022 CULTU RE: HERPE S SIMPL EX VIRUS (HSV) , REFLE X TYPIN G source LESION SCRAPI NGS Not Available [facility] (Lab) [address], [place], [address], 08/27/2022 10:36:37 08/25/19 23 08/24/2022 CULTU RE: HERPE S SIMPL EX VIRUS (HSV) , REFLE X TYPIN G hsv culture, body fluid NOT ISOLAT ED right labia minor a Perfo rming Organ izati on Infor matio n: Site ID: CB Name: [facility] Addre ss: [address] [place] [address] Direc tor: Delfin kwan Not Available [facility] (Lab) [address], [place], [address], 08/27/2022 10:36:37 02/24/20 23 02/23/2023 DEXA No observ ation record ed. [facility] [address], [place], [address], 06/10/2023 19:49:57 Result Notes None recorded. Problems Name Problem SNOMED Code Status Onset Date Resolution Date Notes Provider Name and Address Organization Details Recorded Time Premature menopause 637424569 Active 2022 age 35- surgic al, HRT only 1-2 years Aurelia Miller MD [address], [place], [address], [facility] 3 11:23:31 Osteopenia 663171778 Active 2022 Aurelia Miller MD [address], [place], [address], [facility] 3 11:23:39 Type 2 diabetes mellitus 83558639 Active 2022 Aurelia Miller MD [address], [place], [address], [facility] 3 11:23:45 Anxiety 04051196 Active 2022 Aurelia Miller MD [address], [place], [address], [facility] 3 11:24:11 History of hysterectomy 810884850 Active 2022 LAVH/B SO endo/o v cysts Aurelia Miller MD [address], [place], [address], [facility] 3 11:24:36 Problem Notes None recorded. Procedures Surgical History Date Name Laterality Status Provider Name and Address Organization Details Recorded Time 06/07/19 22 Date of Last Mammogram completed Lazara Brantley [facility] 08/11/2022 10:56:15 04/23/19 21 Breast Biopsy completed Peyton Rudolph [facility] 11/16/2022 15:08:22 03/24/20 20 Date of [facility]2022 12:46:53 03/24/20 20 completed Grace Meyer [facility] 08/24/2022 12:46:53 03/24/20 20 [facility] 11/16/2022 14:57:54 04/23/19 19 Most Recent [facility]/24[facility]2022 12:46:53 04/23/19 18 Date of Last Pap Smear completed Grace Meyer [facility] 08/24/2022 12:46:53 04/18/20 17 Colonoscopy completed Peyton Rudolph [facility] 11/16/2022 15:08:07 04/23/19 09 LEEP completed Peyton Rudolph [facility] 11/16/2022 14:55:41 04/23/19 00 Total Hysterectomy completed Peyton Rudolph [facility] 11/16/2022 14:56:08 04/23/18 98 Tubal Ligation completed Peyton Rudolph [facility] 11/16/2022 14:56:03 04/23/18 93 Laparoscopy completed Peytonmoi Rudolph [facility] 11/16/2022 15:07:41 03/24/19 88 Caes[facility] 11/06/2022 10:03:41 Hysteroscopy completed Lazara Brantley [facility] 08/11/2022 09:34:06 Endometrial Ablation completed Grace Olsonfidel [facility] 08/24/2022 12:47:05 Endometrial Biopsy completed [facility] 08/24/2022 12:47:05 Imaging Results Imaging Date Name Status LastModified by Organizatio n Details LastModified Time 02/23/2023 DEXA completed [facility] [address] [address], [place], [address], 06/10/2023 19:49:57 Procedure Notes None recorded. Medical Equipment None Reported. Allergies Allergen ID Allergen Name Allergen Category Reaction Reaction Severity Criticality Documentation Date Start Date Code Code System Note Provider Name and Address Organization Details Recorded Time Product containin g penicilli n (product) medicatio n respirato ry distress moderate Not available 08/11/2022 67081 8001 SNOMED Lazara rascon, [facility] 3 11:14:11 Substance with sulfonami de structure and antibacte rial mechanism of action (substanc e) medicatio n Not available Not available Not available 08/11/2022 62144 8003 SNOMED Lazara rascon [facility] 3 11:14:19 Medications Name Sig Start [...] Updated DateTime 08/11/2022 160.02 cm 26 kg/m2 38706.08 g 110 mm[Hg] 62 mm[Hg] Lazara [facility] 11:11:08 Date Recorded Body height Systolic blood pressure Diastolic blood pressure Provider Name and Address Organization Details Last Updated DateTime 08/24/2022 160.02 cm 117 mm[Hg] 78 mm[Hg] [facility] 08/24/2022 12:46:42 Date Recorded Body height Systolic blood pressure Diastolic blood pressure Provider Name and Address Organization Details Last Updated DateTime 09/06/2022 160.02 cm 119 mm[Hg] 78 mm[Hg] [facility] 09/06/2022 09:43:31 Date Recorded Body height Body mass index (BMI) Body weight Systolic blood pressure Diastolic blood pressure Provider Name and Address Organization Details Last Updated DateTime 11/06/2022 160.02 cm 25.9 kg/m2 93394.49 g 125 mm[Hg] 84 mm[Hg] Peyton Rudolph [facility] 10:02:29 Social History Question Answer Notes LastModified by Organizat ion Details LastModified Time Tobacco Smoking Status Former Smoker Alicia Segovia tarah, [facility] 11/06/2022 09:42:42 What Is Your Level [...] Or The Highest Degree You Have Received? 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 [id number] Information not available 08/24/2022 Do You Use Any Illicit Or Recreational Drugs? No Information not available 08/24/2022 Do You Use Sunscreen Routinely? Yes Information not available 08/24/2022 Has Tobacco Cessation Counseling Been Provided? No [email or web address] Information not available 11/06/2022 Have You Used IV Drugs? No Information not available 08/24/2022 Do You Or Have You Ever Used Any Other Forms Of Tobacco Or Nicotine? No [email or web address] Information not available 11/06/2022 Sex: Unknown Functional Status Question Answer Note LastModified by Organizat ion Details LastModified Time Do you have difficulty walking or climbing stairs? No [email or web address] Information not available 11/06/2022 Are you able to walk? YESWOREST Information not available 08/24/2022 Are you able to care for yourself? Yes [email or web address] Information not available 11/06/2022 Do you have difficulty dressing or bathing? No Information not available 11/06/2022 What is your [...] SNOMED-CT Code Diagnosis ICD10 Code Diagnosis Note [id number] Aurelia Miller MD [facility] [address] [address] 08/11/2022 10:34:14 08/11/2022 11:42:21 Gynecologic examination 73201692 Z01.419 History of hysterectomy 244436032 Z90.711 Osteopenia 394128318 M85 .80 Premature menopause 3737 86619 E28.319 [id number] KENNY Ortiz [facility] [address] [address] 08/24/2022 12:38:41 08/24/2022 14:11:44 Vulval irritation 958561808 N90.89 Irritation around vaginal openingSTI testing sentHSV [...] review of plan of care. 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 Dyspareunia 31970340 N94 .10 [id number] KENNY Ortiz [facility] [address],[place] [address] 11/06/2022 09:42:25 11/06/2022 10:37:01 Atrophic vulva 428185159 N90.5 significan t improvemen t in irritation [...] Anaya Member ID Guarantor Name 08/11/2022 1 [facility] BENEFITS PLAN [id number] Marisela [place] [id number] OI Marisela [place] 08/24/2022 1 [facility] BENEFITS PLAN [id number] Marisela [place] [id number] OI Marisela [place] 09/06/2022 1 [facility] [id number] Marisela [place] [id number] OI Marisela [place] 11/06/2022 1 [facility] BENEFITS PLAN [id number] Marisela [place] [id number] OI Marisela [place] Notes Date Note Type Note Provider Name [...] concerns- Aurelia Miller MD [address], [place], [address], [facility] 08/11/2022 11:41:46 3 text/html 57yopresents for evaluation of vulvar irritationsymptoms started 3-4 days ago after ICnoticed irritation, burning, itching around vaginal openingthis frequently happens after ICuses coconut oil as lubricationSA with steady male partneruses OTC HUTCHINSON vaginal moisturizerneg d/cneg n/v/fneg pelvic pain KENNY Ortiz [address], [place], [address], [facility] 08/24/2022 13:47:00 3 text/html 57yopresents for evaluation of vulvar irritations/p hyst/BSO at age 35 for endometriosis/ ovarian cysthas been experiencing vaginal dryness, irritation for yearsIC is painfulhas used OTC HUTCHINSON products with some improvementused nystatin/triamcinolone ointment and this helped some KENNY Ortiz [address], [place], [address], [facility] 09/06/2022 10:11:23 3 text/html 57yopresents for f/ustarted estrace [facility] sometimeshas not noticed a significant improvement with IC, however irritation has improved s/p hyst/BSO at age 35 for endometriosis/ ovarian cysthas been experiencing vaginal dryness, irritation for yearsIC is painful KENNY Ortiz [address], [place], [address], [facility] 11/06/2022 10:36:17 OBGyn Episode Ob Episode Information Episode Created Date Number of Fetuses Patient Bloodtype Patient rh Status Prepregnancy Weight lbs Domestic Partner Domestic Partner Phone Father Name Embossing Unit Operator Status 08/12/19 23 1 CLOSED Fetus Data First Name Last Name Admitted to NICU Weight (g) Sex Living Outcome Pediatric Complications Fetus ID Race Codes Race Delivery Type , Spontane ous [id number] Nirmal Calculation Initial Nirmal Date Initial Exam [...] Domestic Partner Domestic Partner Phone Father Name Embossing Unit Operator Status 08/12/19 23 1 CLOSED Fetus Data First Name Last Name Admitted to NICU Weight (g) Sex Living Outcome Pediatric Complications Fetus ID Race Codes Race Delivery Type 5244.43 0704 M Full Term [id number] Primary Nirmal Calculation Initial Nirmal Date Initial [...] Post Complications Tubal Sterilization Discharge Date Comments 8 GDM Discharge Information Feeding Method Contraceptive Method Maternal HG B and HCT Levels
--- OUTSIDE RECORDS SUMMARY | 2024-08-08 10:42 | XMS_ITS | Clinical Summary ---
Author Organization [facility] Address [address] [place] [address] Care Team Providers Care Broadcasting Equipment Mechanic Name Role Phone Yon Palomino DO Primary Care Provider [phone]- [phone] Allergies Active Allergy Reactions Criticality Noted Date [...] procedures. She had [place] and [place] months ago. Currently ibs with migratory [...] Request patient for cd of CT from [facility]. If fever, nausea, vomiting occur please call [...] of Alcohol Consumption 2-3 times a weabdoulaye k 11/28/2018 Average Number of Drinks 3 or 4 019 Frequency of Binge Drinking Never 11/2018 PHQ-2 Answer Date Recorded PHQ-2 Score 0 02/04/2019 Personal Safety Answer Date Recorded Getting School Help Needed Not on file 07/06 Comments Unknown Sex and Gender Information Value Date Recorded Sex Assigned at Not on file Legal Sex Female 6:56 AM SCRIPT GIRL Gender Identity Female 11/29/2020 8:21 AM CDT [...] 1965 Foot Exam 1964 Lipid Panel 1964 DTaP/Tdap/Td Vaccine (1 - Tdap) 02/02/1975 Hepatitis B Screening 02/02/1982 Regular Well Visit/Exam 18-64 02/02/1982 Pneumococcal vaccine <65 (1 of 2 - PCV) 02/02/1983 eGFR 12/04/2019 12/03/2018 Depression Screening 02/05/2020 02/04/2019, 02/05/20 19 Breast Cancer Screening-Mammogram 08/12/2023 023 Influenza Vaccine (Season Ended) 2024 02/10/20 19 Zoster Vaccine Completed 06/15/2020, 02/22/2020 Procedures Procedure [...] compared to prior imaging studies performed at [facility] on 10/09/2006, and at [facility] on 09/13/2006. There are scattered [...] compared to prior imaging studies performed at [facility] on 10/09/2006, and at [facility] on 09/13/2006. There are [...] eGFR 100 mL/min/1.7 3 m2 JT SIMONS ([place]ADRID) Comment: Interpretive Data Reference Interval Normal >/= 90 mL/min/1.73m2 Mildly decreased* 60 - 89 mL/min/1.73m2 Mildly to moderately decreased 45 - 59 mL/min/1.73m2 Moderately to severely decreased 30 - 44 mL/min/1.73m2 Severely decreased 15 - 29 mL/min/1.73m2 Kidney Failure < 15 mL/min/1.73m2 *Relative to young adult level If -Jordanian multiply value by 1.16. Estimated glomerular filtration [...] 12/03/2018 4:15 PM CDT us Yolette Loja SANDFILL OPERATOR SURFACE LAB BLOOD ORDERABLES Final Resul t RICHARDERA SIMONS ([place]ADRID) [address] [facility] [place] [address] from Last 3 Months or Most Recently Relevant to Health Maintenance Insurance [employer] [facility] [id number] [facility] [id number] Care Teams Broadcasting Equipment Mechanic Relationship Specialty Start Date End Date Yon Palomino DO PCP - General Internal Medicine 11/26/18
--- OUTSIDE RECORDS SUMMARY | 2024-08-08 10:42 | XMS_ITS | Clinical Summary ---
Author Organization [facility] Address [address] [place] [address] Care Team Providers Care Pulp Drier Name Role Phone Yon Palomino DO Primary Care Provider [phone]- [phone] Source Comments [facility],non-owned Affiliates and Associated Physician Practices is amultiple site organization consisting of ambulatory clinics and hospital sitesin [place], [place], [place] and [place]. This disclosure is being madepursuant to the Care Everywhere program and may not contain all information available regarding this patient. Last updated 18.[facility] Allergies No known active allergies Medications * Be aware that medications may not be up to date on this document. Alwaysverify current medications with the patient. DULoxetine HCl (CYMBALTA PO) Take 150 mg by mouth once daily Active gabapentin (NEURONTIN) 300 MG capsule TAKE 1 CAPSULE BY MOUTH TWICE A DAY 180 capsule 1 04/28/2019 Active Estradiol (IMVEXXY MAINTENANCE PACK) 10 MCG INSTIndications: Vulvodynia Insert 10 mcg into the vagina Two times a week 24 Each 1 08/05/2019 Active Active Problems Problem Noted Date Diagnosed Date History of candidiasis 11/05/2017 Vulvodynia 11/05/2017 Immunizations Immunization Administration Dates Next Due INFLUENZA VACCINE 02/09/2019 Family History Medical History Relation Name Comments CAD (Coronary Artery Disease) Father ID CVA Father Cancer - Pancreatic Maternal Grandfather [...] drink = 0.6 oz pur e alcohol) Comments No Sex and Gender Information Value Date Recorded Sex Assigned at Not on file Legal Sex Female 10:11 AM P D DRIVER Gender Identity Not on file Sexual Orientation [...] 02/02/2014 SCREENING FOR DIABETES 05/22/2018 COVID-19 VACCINE ( - 2023-2 5 season) 2023 DEPRESSION SCREENING 04/23/2024 INFLUENZA VACCINE (Season Ended) 2024 02/10/20 Respiratory Syncytial Virus (RSV) Vaccine Pt: or [...] to complete this topic MENINGOCOCCAL (Group B) VACC INE SHARED DECISION-MAKING Aged Out No longer eligibl e based on patient's age to complete this topic MENINGOCOCCAL GROUPS A/C/Y/W VACCINE Aged Out No longer eligible b ased on patient's age to complete this topic Insurance [employer] Care Teams Pulp Drier Relationship Specialty Start Date End Date Yon Palomino DO PCP - General 10/30/17
--- OUTSIDE RECORDS SUMMARY | 2024-08-08 10:42 | XMS_ITS | Encounter Summary ---
Author Organization [facility] Address [address] [place] [address] Care Team Providers Care Molding Associate Name Role Phone Yon Palomino DO Primary Care Provider [phone]- [phone] Encounter Details Date Type Department Care Team (Late st Contact Info) Description 09/05/2018 Telephone [facility] [address] [place] [id number] Eliza Gross, [facility] [address] [address] Social History Tobacco Use Types Packs/Day Years Used Date Smoking Tobacco: Never Smokeless Tobacco: Never Alcohol Use Standard Drinks/Week Comments No 0 (1 standard drink = 0.6 oz pur e alcohol) Comments No Sex and Gender Information Value Date Recorded Sex Assigned at Not on file Legal Sex Female 10:11 AM DAIRY NUTRITION CONSULTANT Gender Identity Not on file Sexual Orientation Not on file documented as of this encounter Plan of Treatment Not on file documented as of this encounter Visit Diagnoses Not on filedocumented in this encounter Care Teams Molding Associate Relationship Specialty Start Date End Date Yon Palomino DO PCP - General 10/30/17 documented as of this encounter
== END 2024-08-08 10:38 | disposition home or self-care (01) ==
PROVIDERS: PCP Internal Medicine; Visit Provider Clinical Nurse Specialist
DX: R05.9 Cough, unspecified (principal)
CPT/HCPCS: 71046

== ENCOUNTER 2024-09-26 11:23 | Emergency (ER) | payer OTHER, SELFPAY ==
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
--- NOTE | ~2024-09-26 | XR_ITS ---
EXAMINATION: XR chest 2V 09/26/2024 12:54 INDICATION: Right lateral rib pain PROCEDURE: 2 view chest COMPARISON: 08/08/2024 FINDINGS: The lungs are clear. The cardiomediastinal silhouette is within normal limits. There are no pleural effusions. There is no pneumothorax suspected. IMPRESSION: 1: NO ACUTE CARDIOPULMONARY DISEASE. Reviewed, dictated and finalized at location A.
--- OUTSIDE RECORDS SUMMARY | 2024-09-26 11:26 | XMS_ITS | Data Portability ---
Author Organization [facility] Address [address] [place] [address] Care Team Providers Care Procedures Rn Name Role Phone JO ANN ASCENCIO Primary Care Provider Assessment Encounter Date Assessment Date Assessment LastModified by Organization Details LastModified Time 08/11/2022 08/11/2022 healthy female exam/menopaus e patient declines std testing pap- none further mammogram today colonoscopy due 2030 dexa ordered and encouraged Encouraged weight bearing exercise and 1500mg daily of Calcium with Vitamin D FU 1 year or prn [email or web address] Not available 08/11/2022 11:41:15 Plan of Treatment Reminders Order Date Submit Date Provider Last Modified By Organization Details Last Modified Time Details Appointments None recorded. Lab None recorded. Referral None recorded. Procedures None recorded. Surgeries None recorded. Imaging None recorded. Medication Orders Estrace 0.01% (0.1 mg/gram) vaginal cream 2022 023 [facility][id number], [address] [place], [address], 3 10:34:20 Estrace 0.01% (0.1 mg/gram) vaginal cream 2022 023 [facility][id number], [address] [place], [address], 3 10:03:21 nystatin-t riamcinolo ne 100,000 unit/gram- 0.1 % topical ointment 2022 023 [email or web address] 1 [id number], [address] [place], [address], 10:02:38 Patient TargetsNo targets recorded. Patient InstructionsNo instructions recorded. Reason for Referral None Reported. Results Created Date Observation Date Name Description Value Unit Range Abnormal Flag Note LastModifiedBy Organization Detail LastModifiedTime 08/25/19 23 08/24/2022 CT/GC AND TRICH OMONA S VAGIN MAMIE (RRNA ), SWAB chlamydia trachomatis, PCR Negati ve negati ve Not Available [facility] (Lab) [address], [place], [address], 08/27/2022 10:36:36 08/25/19 23 08/24/2022 CT/GC AND TRICH OMONA S VAGIN MAMIE (RRNA ), SWAB neisseria gonorrhoeae, PCR Negati ve negati ve Not Available [facility] (Lab) [address], [place], [address], 08/27/2022 10:36:36 08/25/19 23 08/24/2022 CT/GC AND TRICH OMONA S VAGIN MAMIE (RRNA ), SWAB trichomonas vaginalis ribosomal RNA (rrna) Negati ve negati ve Not Available [facility] (Lab) [address], [place], [address], 08/27/2022 10:36:36 08/25/19 23 08/24/2022 CULTU RE: HERPE S SIMPL EX VIRUS (HSV) , REFLE X TYPIN G source LESION SCRAPI NGS Not Available [facility] (Lab) [address], [place], [address], 08/27/2022 10:36:37 08/25/19 23 08/24/2022 CULTU RE: HERPE S SIMPL EX VIRUS (HSV) , REFLE X TYPIN G hsv culture, body fluid NOT ISOLAT ED right labia minor a Perfo rming Organ izati on Infor matio n: Site ID: CB Name: [facility] Addre ss: [address] [place] [address] Direc tor: Delfin kwan Not Available [facility] (Lab) [address], [place], [address], 08/27/2022 10:36:37 02/24/20 23 02/23/2023 DEXA No observ ation record ed. [facility] [address], [place], [address], 06/10/2023 19:49:57 Result Notes None recorded. Problems Name Problem SNOMED Code Status Onset Date Resolution Date Notes Provider Name and Address Organization Details Recorded Time Premature menopause 957577572 Active 2022 age 35- surgic al, HRT only 1-2 years Aurelia Miller MD [address], [place], [address], [facility] 3 11:23:31 Osteopenia 145899075 Active 2022 Aurelia Miller MD [address], [place], [address], [facility] 3 11:23:39 Type 2 diabetes mellitus 47095650 Active 2022 Aurelia Miller MD [address], [place], [address], [facility] 3 11:23:45 Anxiety 24798201 Active 2022 Aurelia Miller MD [address], [place], [address], [facility] 3 11:24:11 History of hysterectomy 328748198 Active 2022 LAVH/B SO endo/o v cysts Aurelia Miller MD [address], [place], [address], [facility] 3 11:24:36 Problem Notes None recorded. Procedures Surgical History Date Name Laterality Status Provider Name and Address Organization Details Recorded Time 06/07/19 22 Date of Last Mammogram completed Lazara Brantley [facility] 08/11/2022 10:56:15 04/23/19 21 Breast Biopsy completed Peyton Rudolph [facility] 11/16/2022 15:08:22 03/24/20 20 Date of [facility] 08/24/2022 12:46:53 03/24/20 20 completed Grace Meyer [facility] 08/24/2022 12:46:53 03/24/20 20 [facility] 11/16/2022 14:57:54 04/23/19 19 Most Recent [facility] 08/24/2022 12:46:53 04/23/19 18 Date of Last Pap Smear completed Grace Meyer [facility] 08/24/2022 12:46:53 04/18/20 17 Colonoscopy completed Peyton Rudolph [facility] 11/16/2022 15:08:07 04/23/19 09 LEEP completed Peyton Rudolph [facility] 11/16/2022 14:55:41 04/23/19 00 Total Hysterectomy completed Peyton Rudolph [facility] 11/16/2022 14:56:08 04/23/18 98 Tubal Ligation completed Peyton Rudolph [facility] 11/16/2022 14:56:03 04/23/18 93 Laparoscopy completed Peytonmoi Rudolph [facility] 11/16/2022 15:07:41 03/24/19 88 [facility] 11/06/2022 10:03:41 [facility] 08/11/2022 09:34:06 Endometrial Ablation completed [facility] 08/24/2022 12:47:05 Endometrial Biopsy completed [facility] 08/24/2022 12:47:05 Imaging Results None recorded. Procedure Notes None recorded. Medical Equipment None Reported. Allergies Allergen ID Allergen Name Allergen Category Reaction Reaction Severity Criticality Documentation Date Start Date Code Code System Note Provider Name and Address Organization Details Recorded Time Product containin g penicilli n (product) medicatio n respirato ry distress moderate Not available 08/11/2022 [address]2954 [id number] [facility] Lazara Brantley [facility] 3 11:14:11 Substance with sulfonami de structure and antibacte rial mechanism of action (substanc e) medicatio n Not available Not available Not available 08/11/2022 51202 8003 [facility] 3 11:14:19 Medications Name Sig Start [...] (2 mg/1.5 mL) subcutaneou s pen injector 07/17 /2023 completed Not Available Not Available Not Available [...] Updated DateTime 08/11/2022 160.02 cm 26 kg/m2 20603.08 g 110 mm[Hg] 62 mm[Hg] Lazara Brantley [facility] 3 11:11:08 Date Recorded Body height Systolic blood pressure Diastolic blood pressure Provider Name and Address Organization Details Last Updated DateTime 08/24/2022 160.02 cm 117 mm[Hg] 78 mm[Hg] [facility] 08/24/2022 12:46:42 Date Recorded Body height Systolic blood pressure Diastolic blood pressure Provider Name and Address Organization Details Last Updated DateTime 09/06/2022 160.02 cm 119 mm[Hg] 78 mm[Hg] [facility] 09/06/2022 09:43:31 Date Recorded Body height Body mass index (BMI) Body weight Systolic blood pressure Diastolic blood pressure Provider Name and Address Organization Details Last Updated DateTime 11/06/2022 160.02 cm 25.9 kg/m2 43181.49 g 125 mm[Hg] 84 mm[Hg] Peyton Rudolph [facility] 3 10:02:29 Social History Question Answer Notes LastModified by Organizat ion Details LastModified Time Tobacco Smoking Status Former Smoker Alicia Segovia [facility] 11/06/2022 09:42:42 How Many Years Have You Consumed Alcohol? 40 Information not available 08/24/2022 Are You Blind Or Do You Have Difficulty Seeing? No Information n ot available 08/24/2022 What Is Your Level Of Caffeine Consumption? None Information not available 08/24/2022 How Much Tobacco Do You Chew? None Information not available 08/24/2022 In The 14 Days Before Symptom Onset, Have You Had Close Contact With A Laboratory-confirm ed COVID-19 While That Case Was Ill? No Information n ot available 08/24/2022 In The 14 Days Before [...] Of Diet Are You Following? REGULAR Information n ot available 08/24/2022 What Is The Highest Grade Or Level Of School You Have Completed Or The Highest Degree You Have Received? [id number] Information not available 08/24/2022 Are There Any [...] Has Tobacco Cessation Counseling Been Provided? No [email or web address] Information not available 11/06/2022 Have You Used IV Drugs? No Information not available 08/24/2022 Do You Have Difficulty Walking Or Climbing Stairs? No [email or web address] Information not available 11/06/2022 Sex: Unknown Functional Status Question Answer Note LastModified by Organizat ion Details LastModified Time Do you use any illicit or recreational drugs? No Information not available 08/24/2022 Do you or have you ever used any other forms of tobacco or nicotine? No Information not available 11/06/2022 What is your level of alcohol consumption? Moderate Information not available 08/24/2022 Are you able to walk? YESWOREST Information not available 08/24/2022 Are you able to care for yourself? 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 No [email or web address] Information not available 11/06/2022 What is your exercise level? Occasional Information not available 08/24/2022 Mental Status Question Answer Note LastModified by Organization D etails LastModified Time Do you feel stressed (tense, restless, nervous, or anxious, or unable to sleep at night)? [id number] Information not available 08/24/2022 Family History Relationship Description Onset Age of this Age Resolved Age Notes LastModified by Organization Details LastModified Time Father Hypertensive disorder [email or web address] Not available 2022 11:17:00 Father Heart disease [email or web address] Not available 2022 11:17:06 Medical History Condition Response Allergies (Food, seasonal, environmental ) N Other Y Drug/Latex Allergies/Reactions Y Blood Transfusion N Breast Cancer N Dermatologic Disorders N Lung Disease N Defects or Inherited Disease N Breast Problem Y Gestational Diabetes Y Hematologic disorders N Anesthesia Complications N History of STI Y Deep Vein Thrombosis N Polycystic ovary syndrome N Anxiety Disorder Y Autoimmune disease N Arthritis N Polyps N Infertility Y Acid Reflux (GERD) N History of abnormal pap Y Cancer N Varicosities N Stroke N Neurologic/Epilepsy N Endometriosis Y High Cholesterol N Fibromyalgia N Headaches Y Kidney Disease N Heart Problems N Thyroid Problems N Kidney or Bladder Problems Y GI Problems Y Eating Disorder N Anemia [...] SNOMED-CT Code Diagnosis ICD10 Code Diagnosis Note [id number] Aurelia Miller MD [facility] [address] [address] 08/11/2022 10:34:14 08/11/2022 11:42:21 Gynecologic examination 41165843 Z01.419 History of hysterectomy 167863018 Z90.711 Osteopenia 793459611 M85 .80 Premature menopause 3737 08796 E28.319 [id number] KENNY Ortiz [facility] [address] [address] 08/24/2022 12:38:41 08/24/2022 14:11:44 Vulval irritation 137274350 N90.89 Irritation around vaginal openingSTI testing sentHSV [...] review of plan of care. 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 Dyspareunia 18758463 N94 .10 [id number] KENNY Ortiz [facility] [address],[place] [address] 11/06/2022 09:42:25 11/06/2022 10:37:01 Atrophic vulva 510940152 N90.5 significan t improvemen t in irritation [...] Anaya Member ID Guarantor Name 08/11/2022 1 [facility] BENEFITS PLAN [id number] Marisela Truongy [id number] OI Marisela Aline 08/24/2022 1 [facility] BENEFITS PLAN [id number] Mariselajulian Truongy [id number] OI Marisela Banks 09/06/2022 1 [facility] BENEFITS PLAN [id number] Mariselajulian Truongy [id number] OI Marisela Aline 11/06/2022 1 [facility] BENEFITS PLAN [id number] Marisela Truongy [id number] OI Marisela Banks Notes Date Note Type Note Provider Name [...] concerns- Aurelia Miller MD [address], [place], [address], [facility] 08/11/2022 11:41:46 3 text/html 57yopresents for evaluation of vulvar irritationsymptoms started 3-4 days ago after ICnoticed irritation, burning, itching around vaginal openingthis frequently happens after ICuses coconut oil as lubricationSA with steady male partneruses OTC HUTCHINSON vaginal moisturizerneg d/cneg n/v/fneg pelvic pain KENNY Ortiz [address], [place], [address], [facility] 08/24/2022 13:47:00 3 text/html 57yopresents for evaluation of vulvar irritations/p hyst/BSO at age 35 for endometriosis/ ovarian cysthas been experiencing vaginal dryness, irritation for yearsIC is painfulhas used OTC HUTCHINSON products with some improvementused nystatin/triamcinolone ointment and this helped some KENNY Ortiz [address], [place], [address], [facility] 09/06/2022 10:11:23 3 text/html 57yopresents for f/ustart[facility] sometimes[facility] not noticed a significant improvement with IC, however irritation has improved s/p hyst/BSO at age 35 for endometriosis/ ovarian cysthas been experiencing vaginal dryness, irritation for yearsIC is painful KENNY Ortiz [address], [place], [address], [facility] 11/06/2022 10:36:17 OBGyn Episode Ob Episode Information Episode Created Date Number of Fetuses Patient Bloodtype Patient rh Status Prepregnancy Weight lbs Domestic Partner Domestic Partner Phone Father Name Mortar Carrier Status 08/12/19 23 1 CLOSED Fetus Data First Name Last Name Admitted to NICU Weight (g) Sex Living Outcome Pediatric Complications Fetus ID Race Codes Race Delivery Type , Spontane ous Nirmal Calculation Initial Nirmal Date Initial Exam [...] Domestic Partner Domestic Partner Phone Father Name Mortar Carrier Status 08/12/19 23 1 CLOSED Fetus Data First Name Last Name Admitted to NICU Weight (g) Sex Living Outcome Pediatric Complications Fetus ID Race Codes Race Delivery Type 5244.43 0704 M Full Term [id number] Primary Nirmal Calculation Initial Nirmal Date Initial [...]
--- OUTSIDE RECORDS SUMMARY | 2024-09-26 11:26 | XMS_ITS | Referral Summary ---
Author Organization [facility] Address [address] [place] [address] Care Team Providers Care Athletic Scout Name Role Phone Yon Palomino DO Primary Care Provider [phone] Encounters Date Type Department Care Team Description 08/08/2024 12:15 PM CDT Office Visit [facility] at [address] [address] Amna Hancock NP Non-recurrent acute serous otitis media of right ear (Primary Dx); Chronic nasal congestion from Last 3 Months Allergies Active Allergy Reactions Criticality Noted Date [...] procedures. She had colonoscopy and BE at [place] several months ago. Currently ibs with migratory [...] Request patient for cd of CT from [facility]. 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 Gender Identity Female 11/29/2020 8:21 AM CDT Sexual Orientation Straight 11/29/2020 8: 21 AM CDT Last Filed Vital Signs Vital Sign Reading Time Taken Comments Blood Pressure 130/79 08/08/2024 11:37 AM CDT Pulse 86 08/08/2024 11:37 AM CDT Temperature 36.6 C (97.8 F) 08/08/2024 11:37 AM CDT Respiratory Rate 18 08/08/2024 11:37 AM CDT Oxygen Saturation 99% 08/08/2024 11:37 AM CDT Inhaled Oxygen Concentration - - Weight 70.3 kg (155 lb) 08/08/2024 11:37 AM CDT Height 162.6 cm (5' 4) 12/02/2023 4:07 PM CDT Body Mass Index [...] compared to prior imaging studies performed at [facility] on 10/09/2006, and at [facility] on 09/13/2006. There are [...] compared to prior imaging studies performed at [facility] on 10/09/2006, and at [facility] on 09/13/2006. There are [...] mL/min/1.73m2 *Relative to young adult level If -Maltese [...] BLOOD ORDERABLES Final Resul t [facility] ([place]) 1 [facility] [place] [address] from Last 3 Months or Most Recently Relevant to Health Maintenance Insurance [employer] [facility] [id number] [facility] [id number] [facility] [id number] Care Teams Athletic Scout Relationship Specialty Start Date End Date Yon Palomino DO PCP - General Internal Medicine 11/26/18
--- OUTSIDE RECORDS SUMMARY | 2024-09-26 11:26 | XMS_ITS | Clinical Summary ---
Author Organization [facility] Address [address] [place] [address] Care Team Providers Care Loss Prevention Agent Name Role Phone Yon Palomino DO Primary Care Provider [phone] Allergies Active Allergy Reactions Criticality Noted Date [...] procedures. She had colonoscopy and BE at [place] several months ago. Currently ibs with migratory [...] Request patient for cd of CT from [facility]. If fever, nausea, vomiting occur please call or go to ER. 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 There are scattered [...] compared to prior imaging studies performed at [facility] on 10/09/2006, and at [facility] on 09/13/2006. There are [...] eGFR 100 mL/min/1.7 3 m2 [facility] ([place]) Comment: Interpretive Data Reference Interval Normal >/= 90 mL/min/1.73m2 Mildly decreased* 60 - 89 mL/min/1.73m2 Mildly to moderately decreased 45 - 59 mL/min/1.73m2 Moderately to severely decreased 30 - 44 mL/min/1.73m2 Severely decreased 15 - 29 mL/min/1.73m2 Kidney Failure < 15 mL/min/1.73m2 *Relative to young adult level If -Guatemalan multiply value by 1.16. Estimated glomerular filtration [...] CDT 12/03/2018 4:15 PM CDT Yolette Loja VICE PRESIDENT OF COMPLIANCE LAB BLOOD ORDERABLES Final Resul t [facility] ([place]) [facility] [place] [address] from Last 3 Months or Most Recently Relevant to Health Maintenance Insurance [facility] [id number] [facility] [id number] Care Teams Loss Prevention Agent Relationship Specialty Start Date End Date Yon Palomino DO PCP - General Internal Medicine 11/26/18
--- OUTSIDE RECORDS SUMMARY | 2024-09-26 11:26 | XMS_ITS | Encounter Summary ---
Author Organization [facility] Address [address] [place] [address] Care Team Providers Care Salesperson Toy Trains And Accessories Name Role Phone Yon Palomino DO Primary Care Provider [phone] Encounter Details Date Type Department Care Team (Late st Contact Info) Description 09/05/2018 Telephone [facility] [address] [place] [address] Eliza Gross, [facility] [address] [address] Social History Tobacco Use Types Packs/Day Years Used Date Smoking Tobacco: Never Smokeless Tobacco: Never Alcohol Use Standard Drinks/Week Comments No 0 (1 standard drink = 0.6 oz pur e alcohol) Comments No Sex and Gender Information Value Date Recorded Sex Assigned at Not on file 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
--- OUTSIDE RECORDS SUMMARY | 2024-09-26 11:26 | XMS_ITS | Clinical Summary ---
Author Organization [facility] Address [address] [place] [address] Care Team Providers Care Sales Order Clerk Name Role Phone Yon Palomino DO Primary Care Provider Source Comments [facility],non-owned Affiliates and Associated Physician Practices is amultiple site organization consisting of ambulatory clinics and hospital sitesin [place], [place], [place] and [place]. This disclosure is being madepursuant to the Care Everywhere program and may not contain all information available regarding this patient. Last updated 18.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
[2024-09-26 11:28] VITALS: BP 139/90; PULSE 86; RESP 16; TEMP 36.6; O2SAT 100
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
--- OUTSIDE RECORDS SUMMARY | 2024-09-26 12:36 | XMS_ITS | Clinical Summary ---
Author Organization [email or web address] Address [address] [place] [address] Care Team Providers Care Wood Shop Teacher Name Role Phone Yon Palomino DO Primary Care Provider Source Comments [email or web address],non-owned Affiliates and Associated Physician Practices is amultiple site organization consisting of ambulatory clinics and hospital sitesin [place], [place] and [place]. This disclosure is being madepursuant to the Care Everywhere program and may not contain all information available regarding this patient. 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
--- OUTSIDE RECORDS SUMMARY | 2024-09-26 12:36 | XMS_ITS | Referral Summary ---
Author Organization [facility] Building [facility] Address [address] [place] [address] Care Team Providers Care Fly Winder Name Role Phone Yon Palomino DO Primary Care Provider [phone]- [phone] Encounters Date Type Department Care Team Description 08/08/2024 12:15 PM CDT Office Visit [facility] at [address] [address] Amna Hancock NP Non-recurrent acute [...] procedures. She had colonoscopy and BE at [facility] several months ago. Currently ibs with migratory [...] Request patient for cd of CT from [facility]. 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 on 10/09/2006, and at [facility] on 09/13/2006. There [...] compared to prior imaging studies performed at [facility] on 10/09/2006, and at [facility] on 09/13/2006. There [...] mL/min/1.73m2 *Relative to young adult level If -Brazilian multiply value by 1.16. Estimated glomerular filtration [...] BLOOD ORDERABLES Final Resul t [facility] ([place]) 1 [facility] Department [place] [address] from Last 3 Months or Most Recently Relevant to Health Maintenance Insurance [employer] [facility] [id number] [facility] [id number] [facility] [id number] Care Teams Fly Winder Relationship Specialty Start Date End Date Yon Palomino DO PCP - General Internal Medicine 11/26/18
--- OUTSIDE RECORDS SUMMARY | 2024-09-26 12:36 | XMS_ITS | Encounter Summary ---
Author Organization [facility] Address [address] [place] [address] Care Team Providers Care Salvage Engineer Name Role Phone Yon Palomino DO Primary Care Provider Encounter Details Date Type Department Care Team (Late st Contact Info) Description 09/05/2018 Telephone [facility] [address] [place] [id number] Eliza Gross, [facility] [address] [address] Social History Tobacco Use Types Packs/Day Years Used Date Smoking Tobacco: Never Smokeless Tobacco: Never Alcohol Use Standard Drinks/Week Comments No 0 (1 standard drink = 0.6 oz pur e alcohol) Comments No Sex and Gender Information Value Date Recorded Sex Assigned at Not on file 

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
[2024-09-26] MEDS: TETANUS,DIPHTHERIA,AC PERTUSSIS ADULT (0.5 ML) BOOSTRIX IM (13:13)
== END 2024-09-26 14:34 | disposition home or self-care (01) ==
PROVIDERS: Emergency Provider Emergency Medicine; PCP Clinical Nurse Specialist
DX: S50.811A Abrasion of right forearm, initial encounter (principal); S19.9XXA Unspecified injury of neck, initial encounter; S20.211A Contusion of right front wall of thorax, initial encounter; Z23 Encounter for immunization; E66.3 Overweight; Z68.25 Body mass index [BMI] 25.0-25.9, adult; E53.8 Deficiency of other specified B group vitamins; E55.9 Vitamin D deficiency, unspecified; G47.30 Sleep apnea, unspecified; F32.9 Major depressive disorder, single episode, unspecified; Z86.16 Personal history of COVID-19; Z87.891 Personal history of nicotine dependence; Z90.710 Acquired absence of both cervix and uterus; Z79.85 Long-term (current) use of injectable non-insulin antidiabetic drugs; M47.812 Spondylosis without myelopathy or radiculopathy, cervical region; V49.50XA Passenger injured in collision with unspecified motor vehicles in traffic accident, initial encounter
CPT/HCPCS: 70450; 71046; 72125; 90471; 90715; 99284